=== PATIENT | female | born 1965 | race Hispanic/Latino ===

== ENCOUNTER 2018-08-22 19:54 | Emergency (ER) | payer OTHER ==
[2018-08-22] MEDS ORDERED: SODIUM CHLORIDE 0.9% 1000ML 1,000 ML IV ONE (20:49)
[2018-08-22] MEDS ORDERED: ACETAMINOPHEN EXTRA STRENGTH 500 MG TABLET ONE (20:49)
[2018-08-22 21:37] LABS: BASOPHILS % (AUTO) 0.6 % (0.0-5.0); EOSINOPHILS % (AUTO) 1.6 % (0.0-8.0); HEMATOCRIT 39.8 % (36-48); LYMPHOCYTES % (AUTO) 23.4 % (21.0-51.0); MEAN CORPUSCULAR HEMOGLOBIN 29.3 pg (27.0-33.0); MEAN CORPUSCULAR HGB CONC 32.6 g/dL (32.0-36.0); MEAN CORPUSCULAR VOLUME 89.9 fL (79-99); MONOCYTES % (AUTO) 10.9 % (3.0-13.0); NEUTROPHILS % (AUTO) 63.5 % (40.0-77.0); PLATELET COUNT (AUTO) 293 K/uL (130-400); RED BLOOD CELL COUNT(AUTO) 4.42 MIL/uL (4.00-5.50); RED CELL DISTRIBUTION WIDTH 14.8 % (11.0-15.5); WHITE BLOOD COUNT (AUTO) 8.6 K/uL (4.8-10.8)
[2018-08-22 21:53] LABS: CREATININE 0.7 mg/dL (0.5-1.5)
[2018-08-22 21:58] LABS: ALBUMIN 3.7 g/dL (3.5-5.0); BILIRUBIN,DIRECT 0.2 mg/dL (0.0-0.3); BILIRUBIN,TOTAL 0.6 mg/dL (0.2-1.0); TOTAL PROTEIN, SERUM 8.2 g/dL (6.0-8.3)
[2018-08-22 22:00] LABS: ACETAMINOPHEN < 1 mcg/mL (10-30); ALCOHOL, BLOOD < 3 mg/dL (0-10); SALICYLATE < 2.8 mg/dL (2.8-20.0)
[2018-08-22 22:10] LABS: APPEARANCE,URINE Clear (CLEAR); BILIRUBIN,URINE Negative (NEGATIVE); COLOR,URINE Yellow (YELLOW); GLUCOSE, URINE (UA) Negative (NEGATIVE); KETONES,URINE Negative (NEGATIVE); LEUKOCYTE ESTERASE ,URINE Small (NEGATIVE); NITRATE,URINE Negative (NEGATIVE); OCCULT BLOOD,URINE Negative (NEGATIVE); PROTEIN,URINE Negative (NEGATIVE); UROBILINOGEN,URINE 0.2 mg/dL (0.2-1.0)
[2018-08-22 22:11] LABS: INR 0.98 (0.85-1.15); PARTIAL THROMBOPLASTIN TIME 30.3 SEC (26.3-35.5); PROTHROMBIN TIME 10.3 SEC (9.6-11.6)
[2018-08-22 22:48] LABS: BACTERIA,URINE None Seen /HPF (None Seen); RBC,URINE None Seen /HPF (0-1); SQUAMOUS EPITHELIAL CELL,UR Rare /HPF (0-2); WBC,URINE 0-1 /HPF (0-1)
== END 2018-08-22 23:22 | disposition home or self-care (01) ==
LOC: EDH 19:54
DX: F20.9 Schizophrenia, unspecified (principal); J11.1 Influenza due to unidentified influenza virus with other respiratory manifestations; E86.0 Dehydration; F32.9 Major depressive disorder, single episode, unspecified; F41.9 Anxiety disorder, unspecified; I10 Essential (primary) hypertension
CPT/HCPCS: 36415; 70450; 71045; 80048; 80076; 81001; 82140; 82550; 84484; 85025; 85610; 85730; 87040 ×2; 87804 ×2; 93005; 96360; 99284; G0480 ×2; G0481; J7030

== ENCOUNTER 2018-10-10 06:15 | Emergency (ER) | payer OTHER ==
[2018-10-10 06:52] LABS: APPEARANCE,URINE CLEAR (CLEAR); BILIRUBIN,URINE NEGATIVE (NEGATIVE); COLOR,URINE YELLOW (YELLOW); GLUCOSE, URINE (UA) NEGATIVE (NEGATIVE); KETONES,URINE NEGATIVE (NEGATIVE); LEUKOCYTE ESTERASE ,URINE NEGATIVE (NEGATIVE); NITRATE,URINE NEGATIVE (NEGATIVE); OCCULT BLOOD,URINE SMALL (NEGATIVE); PROTEIN,URINE 100 mg/dL (NEGATIVE)
[2018-10-10 06:55] LABS: BASOPHILS % (AUTO) 0.2 % (0.0-5.0); HEMATOCRIT 37.9 % (36-48); MEAN CORPUSCULAR HEMOGLOBIN 29.4 pg (27.0-33.0); MEAN CORPUSCULAR HGB CONC 33.3 g/dL (32.0-36.0); MEAN CORPUSCULAR VOLUME 88.4 fL (79-99); NEUTROPHILS % (AUTO) 73.8 % (40.0-77.0); PLATELET COUNT (AUTO) 246 K/uL (130-400); RED BLOOD CELL COUNT(AUTO) 4.28 MIL/uL (4.00-5.50); RED CELL DISTRIBUTION WIDTH 16.2 % (11.0-15.5); WHITE BLOOD COUNT (AUTO) 6.1 K/uL (4.8-10.8)
[2018-10-10 07:00] LABS: AMPHET/METH SCREEN,URINE NEGATIVE (NEGATIVE); BARBITURATE SCREEN, URINE NEGATIVE (NEGATIVE); BENZODIAZEPINES SCREEN,URINE POSITIVE (NEGATIVE); CANNABINOID SCREEN,URINE NEGATIVE (NEGATIVE); CARBON DIOXIDE 26 mmol/L (21-32); CHLORIDE 104 mmol/L (101-111); COCAINE SCREEN,URINE NEGATIVE (NEGATIVE); CREATININE 0.7 mg/dL (0.5-1.5); GLOMERULAR FILTR. RATE CALC 93 mL/min (>60); GLUCOSE,RANDOM 116 mg/dL (70-105); OPIATE SCREEN,URINE NEGATIVE (NEGATIVE); PHENCYCLIDINE SCREEN,URINE NEGATIVE (NEGATIVE); POTASSIUM 3.3 mmol/L (3.5-5.1); SODIUM SERUM 142 mmol/L (136-145); UREA NITROGEN, BLOOD 11 mg/dL (7-18)
[2018-10-10 07:01] LABS: BACTERIA,URINE None Seen /HPF (None Seen); MUCUS,URINE Moderate LPF (None Seen); SQUAMOUS EPITHELIAL CELL,UR 0-2 /HPF (0-2); WBC,URINE None Seen /HPF (0-1)
[2018-10-10 07:03] LABS: PARTIAL THROMBOPLASTIN TIME 29.4 SEC (26.3-35.5); PROTHROMBIN TIME 10.5 SEC (9.6-11.6)
[2018-10-10 07:16] LABS: ALANINE AMINOTRANSFERASE 19 U/L (12-78); ALBUMIN 3.7 g/dL (3.5-5.0); ASPARTATE AMINOTRANSFERASE 15 U/L (10-37); BILIRUBIN,TOTAL 0.3 mg/dL (0.2-1.0); CREATINE KINASE, TOTAL 109 U/L (21-232); LIPASE 107 U/L (114-286); THYROID STIMULATING HORMONE 13.51 uIU/mL (0.36-3.74); TOTAL PROTEIN, SERUM 8.3 g/dL (6.0-8.3)
[2018-10-10 07:38] LABS: ALCOHOL, BLOOD < 3 mg/dL (0-10)
[2018-10-10 07:42] LABS: ACETAMINOPHEN < 1 mcg/mL (10-30); SALICYLATE < 2.8 mg/dL (2.8-20.0)
[2018-10-10] MEDS ORDERED: CLONIDINE HCL 0.1 MG TABLET ONE (08:17)
[2018-10-10] MEDS ORDERED: ZIPRASIDONE MESYLATE 20 MG/VIAL IM ONE ×2 (09:38→21:44)
[2018-10-10] MEDS ORDERED: LORAZEPAM 2 MG/ML 1 ML VIAL ONE ×4 (12:31→23:32)
[2018-10-10] MEDS ORDERED: ACETAMINOPHEN EXTRA STRENGTH 500 MG TABLET ONE (18:35)
[2018-10-10] MEDS ORDERED: DiphenhydrAMINE HCL 50 MG/ML VIAL ONE (22:12)
[2018-10-10] MEDS ORDERED: HALOPERIDOL LACTATE 5 MG/ML VIAL ONE ×2 (23:08→23:32)
[2018-10-11] MEDS ORDERED: POTASSIUM CHLORIDE 10% ELIXIR 20 MEQ/15 ML UDCUP ONE (10:43)
[2018-10-11 11:13] LABS: POTASSIUM 3.7 mmol/L (3.5-5.1); T4 (THYROXINE) 8.8 ug/dL (4.7-13.3)
[2018-10-11] MEDS ORDERED: LORAZEPAM 2 MG/ML 1 ML VIAL ONE ×2 (12:30→22:28)
[2018-10-11] MEDS ORDERED: DiphenhydrAMINE HCL 50 MG/ML VIAL ONE (22:28)
[2018-10-11] MEDS ORDERED: HALOPERIDOL LACTATE 5 MG/ML VIAL ONE (22:29)
[2018-10-12] MEDS ORDERED: METOCLOPRAMIDE 10 MG TABLET ONE ×2 (06:05→06:08)
[2018-10-12] MEDS ORDERED: LORAZEPAM 1 MG TABLET ONE (07:12)
[2018-10-12 08:59] LABS: BASOPHILS % (AUTO) 0.4 % (0.0-5.0); EOSINOPHILS % (AUTO) 0.2 % (0.0-8.0); HEMATOCRIT 37.9 % (36-48); MEAN CORPUSCULAR HEMOGLOBIN 29.9 pg (27.0-33.0); MEAN CORPUSCULAR HGB CONC 33.7 g/dL (32.0-36.0); MEAN CORPUSCULAR VOLUME 88.7 fL (79-99); MONOCYTES % (AUTO) 10.3 % (3.0-13.0); NEUTROPHILS % (AUTO) 70.1 % (40.0-77.0); PLATELET COUNT (AUTO) 242 K/uL (130-400); RED BLOOD CELL COUNT(AUTO) 4.28 MIL/uL (4.00-5.50); RED CELL DISTRIBUTION WIDTH 16.3 % (11.0-15.5); WHITE BLOOD COUNT (AUTO) 6.6 K/uL (4.8-10.8)
[2018-10-12 09:09] LABS: CREATININE 0.7 mg/dL (0.5-1.5); POTASSIUM 3.6 mmol/L (3.5-5.1)
[2018-10-12 09:14] LABS: ALBUMIN 3.7 g/dL (3.5-5.0); BILIRUBIN,TOTAL 0.6 mg/dL (0.2-1.0)
== END 2018-10-10 14:11 ==
LOC: EDH 06:15
DX: F23 Brief psychotic disorder (principal); F32.9 Major depressive disorder, single episode, unspecified; F41.9 Anxiety disorder, unspecified; I10 Essential (primary) hypertension; Z98.890 Other specified postprocedural states
CPT/HCPCS: 36415 ×3; 70450; 80053 ×2; 80305; 81001; 82550; 83605; 83690; 84132; 84436; 84443; 84484; 85025 ×2; 85610; 85730; 93005; 96372 ×8; 96374; 96375; 96376; 99285; A4218; G0480 ×2; G0481; J1200; J1630 ×2; J2060 ×4; J3486 ×2

== ENCOUNTER 2018-11-06 02:33 | Inpatient (IN) | payer OTHER ==
[~2018-11-06] VITALS: Ht 160 cm; Wt 92.3 kg
[2018-11-06 03:21] LABS: BASOPHILS % (AUTO) 0.5 % (0.0-5.0); HEMATOCRIT 31.5 % (36-48); MEAN CORPUSCULAR VOLUME 91.1 fL (79-99); NEUTROPHILS % (AUTO) 53.5 % (40.0-77.0); PLATELET COUNT (AUTO) 235 K/uL (130-400); RED BLOOD CELL COUNT(AUTO) 3.46 MIL/uL (4.00-5.50); RED CELL DISTRIBUTION WIDTH 15.5 % (11.0-15.5); WHITE BLOOD COUNT (AUTO) 6.4 K/uL (4.8-10.8)
[2018-11-06 03:32] LABS: INR 0.97 (0.85-1.15); PROTHROMBIN TIME 10.2 SEC (9.6-11.6)
[2018-11-06 03:35] LABS: ALBUMIN 3.3 g/dL (3.5-5.0); BILIRUBIN,TOTAL 0.5 mg/dL (0.2-1.0); TOTAL PROTEIN, SERUM 7.2 g/dL (6.0-8.3)
[2018-11-06] MEDS ORDERED: ACETAMINOPHEN 325 MG TAB PO PRN ×2 (04:45)
[2018-11-06] MEDS ORDERED: ONDANSETRON HCL 4 MG/2 ML VIAL IV PRN (04:45)
[2018-11-06 04:50] LABS: MAGNESIUM 1.7 mg/dL (1.80-2.40); THYROID STIMULATING HORMONE 3.89 uIU/mL (0.36-3.74)
[2018-11-06] MEDS ORDERED: MAGNESIUM OXIDE 400 MG TABLET PO ONE (05:36)
[2018-11-06 06:49] VITALS: BP 131/56
--- NOTE | 2018-11-06 06:50 | NUR ---
Patient arrived on unit at 0645. patient does not have home meds. Can only answer questions such as name, , and what city she is from. Patient is currently SR 70s. Resting in bed. Denies pain or sob. Report given to TRACY Steen.
[2018-11-06] MEDS: FAMOTIDINE/PF 20 MG/2 ML VIAL IV SCH ×2 (09:22→21:38)
[2018-11-06] MEDS: ENOXAPARIN SODIUM 30 MG/0.3 ML SQ SCH ×2 (09:26→21:38)
[2018-11-06 12:00] VITALS: BP 106/52
--- NOTE | 2018-11-06 12:06 | NUR ---
Spoke with Ritu Saleh, authorized spoke [facility] of [facility]. Ritu is coming to the hospital and will provide the medications list
[2018-11-06 15:48] LABS: APPEARANCE,URINE Clear (CLEAR); BILIRUBIN,URINE Negative (NEGATIVE); COLOR,URINE Yellow (YELLOW); GLUCOSE, URINE (UA) Negative (NEGATIVE); KETONES,URINE Negative (NEGATIVE); LEUKOCYTE ESTERASE ,URINE Trace (NEGATIVE); NITRATE,URINE Negative (NEGATIVE); OCCULT BLOOD,URINE Negative (NEGATIVE); PH,URINE 5.5 (5.0-8.0); PROTEIN,URINE Negative (NEGATIVE)
[2018-11-06 15:57] LABS: AMPHET/METH SCREEN,URINE NEGATIVE (NEGATIVE); BARBITURATE SCREEN, URINE NEGATIVE (NEGATIVE); BENZODIAZEPINES SCREEN,URINE NEGATIVE (NEGATIVE); CANNABINOID SCREEN,URINE NEGATIVE (NEGATIVE); COCAINE SCREEN,URINE NEGATIVE (NEGATIVE); OPIATE SCREEN,URINE NEGATIVE (NEGATIVE); PHENCYCLIDINE SCREEN,URINE NEGATIVE (NEGATIVE)
[2018-11-06 15:58] LABS: BACTERIA,URINE Rare /HPF (None Seen); RBC,URINE 0-1 /HPF (0-1)
[2018-11-06 15:59] LABS: MUCUS,URINE Few LPF (None Seen); SQUAMOUS EPITHELIAL CELL,UR Few /HPF (0-2)
[2018-11-06 16:00] VITALS: BP 134/59
--- NOTE | 2018-11-06 16:36 | NUR ---
[facility] CM met with pt currently by herself in room, unable to answer questions appropriately. Called caregiver # on facesheet as well as , no answer, left voicemail. Obtained info from [facility]. Pt is semi-independent, currently at [facility], does not use any DME's. Will reassess once closer to dc/when able to get in touch w/caregiver or . DC plan back to [facility]. CM to cont to follow up. Addendum: 11/06/18 at 1638 by JIMMY CHRISTIANSON LVN CM Amended: Links added.
[2018-11-06 19:30] VITALS: BP_SYST 151; BP_SYST 165; BP_DIAS 66; BP_DIAS 68
[2018-11-06] MEDS ORDERED: MAGNESIUM 2GM PREMIX 50ML 50 ML IV PRN (21:45)
[2018-11-06 23:28] VITALS: BP 136/59
[2018-11-07] VITALS (7 sets, daily range): BP systolic 133–177; BP diastolic 55–88
[2018-11-07 03:41] LABS: HEMATOCRIT 32.9 % (36-48); MEAN CORPUSCULAR HEMOGLOBIN 30.3 pg (27.0-33.0); MEAN CORPUSCULAR HGB CONC 33.8 g/dL (32.0-36.0); MEAN CORPUSCULAR VOLUME 89.8 fL (79-99); PLATELET COUNT (AUTO) 264 K/uL (130-400); RED BLOOD CELL COUNT(AUTO) 3.66 MIL/uL (4.00-5.50); RED CELL DISTRIBUTION WIDTH 15.4 % (11.0-15.5); WHITE BLOOD COUNT (AUTO) 6.2 K/uL (4.8-10.8)
[2018-11-07 04:02] LABS: CREATININE 0.8 mg/dL (0.5-1.5); MAGNESIUM 2.3 mg/dL (1.80-2.40); PHOSPHORUS 3.2 mg/dL (2.5-4.9); POTASSIUM 3.4 mmol/L (3.5-5.1)
[2018-11-07] MEDS: LEVOTHYROXINE 50 MCG TABLET PO SCH (06:53)
[2018-11-07] MEDS: FAMOTIDINE/PF 20 MG/2 ML VIAL IV SCH ×2 (09:00→21:01)
[2018-11-07] MEDS: ENOXAPARIN SODIUM 30 MG/0.3 ML SQ SCH ×2 (10:30→21:02)
[2018-11-08] VITALS (7 sets, daily range): BP systolic 124–152; BP diastolic 56–71
[2018-11-08] MEDS: LEVOTHYROXINE 50 MCG TABLET PO SCH (04:56)
[2018-11-08 05:42] LABS: HEMATOCRIT 30.4 % (36-48); MEAN CORPUSCULAR HEMOGLOBIN 30.7 pg (27.0-33.0); MEAN CORPUSCULAR VOLUME 90.5 fL (79-99); PLATELET COUNT (AUTO) 217 K/uL (130-400); RED BLOOD CELL COUNT(AUTO) 3.36 MIL/uL (4.00-5.50); RED CELL DISTRIBUTION WIDTH 15.7 % (11.0-15.5); WHITE BLOOD COUNT (AUTO) 4.9 K/uL (4.8-10.8)
[2018-11-08 05:51] LABS: CREATININE 0.7 mg/dL (0.5-1.5); MAGNESIUM 1.7 mg/dL (1.80-2.40); POTASSIUM 3.6 mmol/L (3.5-5.1)
[2018-11-08] MEDS: FAMOTIDINE/PF 20 MG/2 ML VIAL IV SCH ×2 (10:05→20:18)
[2018-11-08] MEDS: ENOXAPARIN SODIUM 30 MG/0.3 ML SQ SCH ×2 (10:07→20:18)
--- NOTE | 2018-11-08 10:38 | NUR ---
CALLED [facility] TO REQUEST CURRENT MEDICATION LIST FOR PT. PERSON STATES PT. WAS NEVER ADMITTED, SHE ARRIVED AT [facility] AND "WAS SENT STRAIGHT TO THE ER [[facility] [place]]."
--- NOTE | 2018-11-08 10:47 | NUR ---
CALLED PATI GALINDO, FROM [facility] WHERE PT. RESIDES, AND OBTAINED A LIST OF PT.'S HOME MEDICATIONS FROM SAID PERSON. Addendum: 11/08/18 at 1110 by JESUS BERRIOS RN RN ALL HOME MEDICATIONS DOUBLE CHECKED WITH PATI GALINDO. ALL MEDICATIONS SCHEDULED; NO MEDICATIONS ARE " NEEDED" BASIS.
[2018-11-08] MEDS ORDERED: TRAZ-185 PO (11:09)
[2018-11-08] MEDS ORDERED: RISP4TAB16 PO (11:09)
[2018-11-08] MEDS ORDERED: RISP1TAB26 PO (11:09)
[2018-11-08] MEDS ORDERED: ZOLP10TA6 PO (11:09)
[2018-11-08] MEDS ORDERED: OLAN10TA20 PO (11:09)
[2018-11-08] MEDS ORDERED: HYDR50CA50 PO (11:09)
[2018-11-08] MEDS ORDERED: AMLO10TA7 PO (11:09)
[2018-11-08] MEDS ORDERED: METO25TA6 PO (11:09)
[2018-11-08] MEDS: **HM**(Hydroxyzine Pamoate 50 MG PO SCH ×2 (14:00→20:31)
--- NOTE | 2018-11-08 14:22 | NUR ---
DR. DEGROOT IN ROOM SPEAKING WITH PT. RE:PLAN OF CARE.
[2018-11-08 18:34] LABS: APPEARANCE,URINE Clear (CLEAR); BILIRUBIN,URINE Negative (NEGATIVE); COLOR,URINE Yellow (YELLOW); GLUCOSE, URINE (UA) Negative (NEGATIVE); KETONES,URINE Negative (NEGATIVE); LEUKOCYTE ESTERASE ,URINE Negative (NEGATIVE); NITRATE,URINE Negative (NEGATIVE); OCCULT BLOOD,URINE Negative (NEGATIVE); PH,URINE 6.5 (5.0-8.0); PROTEIN,URINE Negative (NEGATIVE); UROBILINOGEN,URINE 0.2 mg/dL (0.2-1.0)
[2018-11-08] MEDS: OLANZAPINE 5 MG TAB PO SCH (20:19)
[2018-11-08] MEDS ORDERED: RISPERIDONE 1 MG TABLET PO SCH (21:00)
[2018-11-08] MEDS ORDERED: TRAZODONE HCL 100 MG TABLET PO SCH (21:00)
[2018-11-08] MEDS ORDERED: ZOLPIDEM TARTRATE 5 MG TAB PO SCH (21:00)
[2018-11-09] VITALS: BP 148/69
[2018-11-09 04:00] VITALS: BP 178/77
[2018-11-09] MEDS: LEVOTHYROXINE 50 MCG TABLET PO SCH (06:06)
--- NOTE | 2018-11-09 07:30 | NUR ---
ASSESSMENT PT IS AAOX3 DENIES CP DENIES SOB DENIES NV NO COMPLAINTS. RESTING IN BED. HR VIA TELE 43 SB. PATIENT DENIES DIZZINESS OR NAUSEA. CALL LIGHT WITHIN REACH, DOOR AJAR.
[2018-11-09 07:49] VITALS: BP 135/47
[2018-11-09] MEDS: **HM**(Hydroxyzine Pamoate 50 MG PO SCH ×2 (08:10→13:03)
[2018-11-09] MEDS: OLANZAPINE 5 MG TAB PO SCH (08:12)
[2018-11-09] MEDS: FAMOTIDINE/PF 20 MG/2 ML VIAL IV SCH (08:12)
[2018-11-09] MEDS: ENOXAPARIN SODIUM 30 MG/0.3 ML SQ SCH (08:12)
--- NOTE | 2018-11-09 08:30 | NUR ---
HR VIA TELE WITH [employer] [employer] PATIENT DENIES CP DENIES SOB DENIES NV NO COMPLAINTS. DOOR AJAR LIGHTS OPEN CALL LIGHT WITHIN REACH.
[2018-11-09] MEDS ORDERED: AMLODIPINE BESYLATE 2.5 MG TAB PO SCH (09:00)
[2018-11-09] MEDS ORDERED: RISPERIDONE PO SCH (09:00)
--- NOTE | 2018-11-09 10:35 | NUR ---
cm note call made to listed next of kin spouse silver lentz, called multiple times and no response and unable to leave message on the line. call made to next listed number is mitchell maldonado [phone] she is in charge of [facility] assisted living. and states pt has been a resident since May of last year. and states that pt became psychotic and aggressive and they took her to [facility] for assistance, but then got transferred to our hospital. she states that she prefers for pt to go to [facility] first , then she will take her back at her facility, Does state that if not able to get accepted at [facility] she will accept her back at her facililty. per mitchell states that spouse is very difficult to get a hold off, and that he only comes to pay for her room and then leaves.little or no interaction with pt, states she has no other listed next of kin information. updated CM director Shanel angeles RNCM,and inability to find family. states to proceed with referral to [facility] and document attempts to find familiy. updated primary md. referral faxed to [facility].
[2018-11-09 11:10] VITALS: BP 134/71
--- NOTE | 2018-11-09 12:41 | NUR ---
cm note received call from Jovanna lauren at [facility] , states that her psychiatrist states no capability at this time. does not meet IP psych criteria for admisssion to [facility] at this time. updated primary md, did inform him that if not accepted at [facility] , then Ritu maldonado [phone] from [facility] assisted living will accept pt. call made to Ritu maldonado with [facility], and updated on above, and states that if pt not accepted, then she will accept pt back to her facility, and she will come and pick her up at [facility]. Primary nurse Tirso updated.
[2018-11-09 15:14] VITALS: BP 136/54
--- NOTE | 2018-11-09 15:30 | NUR ---
MD ROUNDS DR Robel PERRY AND DR CHEEK ROUNDED, OK TO DC PATIENT BACK TO LONG TERM.
--- NOTE | 2018-11-09 16:31 | NUR ---
NOTIFIED [facility] OR PATIENT ORDER TO BE DC SPOKE WITH PATI, SHE WILL COME HOOKER ON PATIENT Addendum: 11/09/18 at 1752 by CARIDAD BREAUX RN RN OF PATIENT ORDER TO BE DC
--- NOTE | 2018-11-09 17:23 | NUR ---
DISCHARGED TO [facility] WITH PATI CAREGIVER. ALL INSTRUCTIONS GIVEN TO CAREGIVER. PIV REMOVED, CATH TIP INTACT, TELE PACK REMOVED. ALL BELONGINGS TAKEN. DOWN VIA WC TO VEHICLE.
== END 2018-11-09 17:27 | DRG 310 ==
LOC: EDH 02:33 → EDHIP 04:35 → 2DH 06:14
PROVIDERS: ADMIT Internal Medicine; ATTEND Internal Medicine
DX: R00.1 Bradycardia, unspecified (principal); E11.9 Type 2 diabetes mellitus without complications; F20.9 Schizophrenia, unspecified; F31.9 Bipolar disorder, unspecified; I10 Essential (primary) hypertension; E66.9 Obesity, unspecified; E03.9 Hypothyroidism, unspecified; Z79.84 Long term (current) use of oral hypoglycemic drugs; Z88.6 Allergy status to analgesic agent; Z88.0 Allergy status to penicillin; Z68.36 Body mass index [BMI] 36.0-36.9, adult
CPT/HCPCS: 36415; 71045; 80048; 80053; 80305; 81001; 81003; 82550; 82948; 83735; 84100; 84443; 84484; 85025; 85027; 85610; 85730; 93005; G0378; J1650; J3475; J3490

== ENCOUNTER 2021-09-07 12:05 | Emergency (ER) | payer OTHER ==
[~2021-09-07] VITALS: Ht 165.1 cm; Wt 81.6 kg
[~2021-09-07 12:05] MED LIST: AMLO-258 PO; HYDR50CA50 PO; OLAN10TA73 PO; RISP1TAB98 PO; RISP4TAB73 PO; TRAZ-185 PO; ZOLP10TA6 PO
[2021-09-07 12:27] LABS: BASOPHILS % (AUTO) 0.6 % (0.0-5.0); EOSINOPHILS % (AUTO) 1.6 % (0.0-8.0); HEMATOCRIT 29.2 % (36-48); LYMPHOCYTES % (AUTO) 30.2 % (21.0-51.0); MEAN CORPUSCULAR HGB CONC 32.2 g/dL (32.0-36.0); MEAN CORPUSCULAR VOLUME 93.3 fL (79-99); MONOCYTES % (AUTO) 15.2 % (3.0-13.0); NEUTROPHILS % (AUTO) 52.1 % (40.0-77.0); PLATELET COUNT (AUTO) 265 K/uL (130-400); RED BLOOD CELL COUNT(AUTO) 3.13 MIL/uL (4.00-5.50); RED CELL DISTRIBUTION WIDTH 15.2 % (11.0-15.5); WHITE BLOOD COUNT (AUTO) 7.1 K/uL (4.8-10.8)
[2021-09-07] MEDS ORDERED: 0.9%NACL 1000ML 1,000 ML IV ONE (12:30)
[2021-09-07 12:42] LABS: CARBON DIOXIDE 29 mmol/L (21-32); CHLORIDE 103 mmol/L (101-111); CREATININE 0.7 mg/dL (0.5-1.5); GLOMERULAR FILTR. RATE CALC 92 mL/min (>60); GLUCOSE,RANDOM 95 mg/dL (70-105); POTASSIUM 3.6 mmol/L (3.5-5.1); SODIUM SERUM 140 mmol/L (136-145); UREA NITROGEN, BLOOD 15 mg/dL (7-18)
[2021-09-07 12:49] LABS: ALANINE AMINOTRANSFERASE 22 U/L (12-78); ALBUMIN 2.9 g/dL (3.5-5.0); ALCOHOL, BLOOD 5 mg/dL (0-10); ASPARTATE AMINOTRANSFERASE 28 U/L (10-37); BILIRUBIN,TOTAL 0.2 mg/dL (0.2-1.0); CREATINE KINASE, TOTAL 211 U/L (21-232); TOTAL PROTEIN, SERUM 7.2 g/dL (6.0-8.3)
[2021-09-07 12:54] LABS: ACETAMINOPHEN < 1 mcg/mL (10-30); SALICYLATE < 2.8 mg/dL (2.8-20.0)
[2021-09-07] MEDS ORDERED: ZIPRASIDONE MESYLATE 20 MG/VIAL IM SCH (13:00)
[2021-09-07 15:43] LABS: APPEARANCE,URINE CLEAR (CLEAR); BILIRUBIN,URINE NEGATIVE (NEGATIVE); COLOR,URINE YELLOW (YELLOW); GLUCOSE, URINE (UA) NEGATIVE (NEGATIVE); KETONES,URINE NEGATIVE (NEGATIVE); LEUKOCYTE ESTERASE ,URINE NEGATIVE (NEGATIVE); NITRATE,URINE NEGATIVE (NEGATIVE); OCCULT BLOOD,URINE SMALL (NEGATIVE); PROTEIN,URINE NEGATIVE (NEGATIVE); UROBILINOGEN,URINE 0.2 mg/dL (0.2-1.0)
[2021-09-07 15:51] LABS: AMPHET/METH SCREEN,URINE NEGATIVE (NEGATIVE); BARBITURATE SCREEN, URINE NEGATIVE (NEGATIVE); BENZODIAZEPINES SCREEN,URINE NEGATIVE (NEGATIVE); CANNABINOID SCREEN,URINE NEGATIVE (NEGATIVE); COCAINE SCREEN,URINE NEGATIVE (NEGATIVE); OPIATE SCREEN,URINE NEGATIVE (NEGATIVE); PHENCYCLIDINE SCREEN,URINE NEGATIVE (NEGATIVE)
[2021-09-07 15:56] LABS: RBC,URINE 0-1 /HPF (0-1); WBC,URINE 0-1 /HPF (0-1)
[2021-09-07 15:58] LABS: BACTERIA,URINE Rare /HPF (None Seen); SQUAMOUS EPITHELIAL CELL,UR Rare /HPF (0-2)
[2021-09-07] MEDS: ZIPRASIDONE MESYLATE 20 MG/VIAL IM SCH ×2 (18:01→18:02)
[2021-09-07] MEDS ORDERED: LORAZEPAM 2 MG/ML 1 ML VIAL IM ONE ×2 (20:00→22:30)
[2021-09-07] MEDS ORDERED: DiphenhydrAMINE HCL 50 MG/ML VIAL ONE (21:39)
[2021-09-07] MEDS ORDERED: DiphenhydrAMINE HCL 50 MG/ML VIAL IM ONE ×2 (22:00→22:30)
[2021-09-07] MEDS ORDERED: HALOPERIDOL INJ 5 MG/ML VIAL IM ONE (22:30)
[2021-09-07] MEDS ORDERED: LORAZEPAM 2 MG/ML 1 ML VIAL ONE (22:39)
[2021-09-08 01:28] VITALS: BP 132/82
== END 2021-09-08 03:29 ==
LOC: EDH 12:12
DX: F29 Unspecified psychosis not due to a substance or known physiological condition (principal); I10 Essential (primary) hypertension; F31.9 Bipolar disorder, unspecified; F20.9 Schizophrenia, unspecified; Z20.822 Contact with and (suspected) exposure to COVID-19
CPT/HCPCS: 36415; 80053; 80164; 80305; 81001; 82550; 85025; 87635; 93005; 96360; 96361; 96372 ×5; 99284; C9803; G0481; J1200 ×2; J2060 ×2; J3486 ×2; J7030

== ENCOUNTER 2021-11-25 08:23 | Emergency (ER) | payer MEDICARE, OTHER ==
[~2021-11-25] VITALS: Ht 154.9 cm; Wt 78.0 kg
[2021-11-25 08:45] LABS: BASOPHILS % (AUTO) 0.8 % (0.0-5.0); EOSINOPHILS % (AUTO) 0.1 % (0.0-8.0); HEMATOCRIT 41.3 % (36-48); LYMPHOCYTES % (AUTO) 26.5 % (21.0-51.0); MEAN CORPUSCULAR HEMOGLOBIN 29.1 pg (27.0-33.0); MEAN CORPUSCULAR HGB CONC 31.5 g/dL (32.0-36.0); MEAN CORPUSCULAR VOLUME 92.6 fL (79-99); MONOCYTES % (AUTO) 10.7 % (3.0-13.0); NEUTROPHILS % (AUTO) 61.7 % (40.0-77.0); PLATELET COUNT (AUTO) 208 K/uL (130-400); RED BLOOD CELL COUNT(AUTO) 4.46 MIL/uL (4.00-5.50); RED CELL DISTRIBUTION WIDTH 15.3 % (11.0-15.5); WHITE BLOOD COUNT (AUTO) 8.5 K/uL (4.8-10.8)
[2021-11-25 09:12] LABS: ALBUMIN 3.5 g/dL (3.5-5.0); BILIRUBIN,TOTAL 0.5 mg/dL (0.2-1.0); CREATININE 0.9 mg/dL (0.5-1.5); POTASSIUM 3.8 mmol/L (3.5-5.1); TOTAL PROTEIN, SERUM 8.4 g/dL (6.0-8.3)
[2021-11-25 09:27] LABS: PROTHROMBIN TIME 10.9 SEC (9.6-11.6)
[2021-11-25 09:27] LABS: APPEARANCE,URINE Clear (CLEAR); BILIRUBIN,URINE Negative (NEGATIVE); COLOR,URINE Yellow (YELLOW); GLUCOSE, URINE (UA) Negative (NEGATIVE); KETONES,URINE 15 mg/dL (NEGATIVE); LEUKOCYTE ESTERASE ,URINE Negative (NEGATIVE); NITRATE,URINE Negative (NEGATIVE); OCCULT BLOOD,URINE Trace (NEGATIVE); PROTEIN,URINE Trace mg/dL (NEGATIVE)
[2021-11-25 09:29] LABS: PARTIAL THROMBOPLASTIN TIME 25.1 SEC (26.3-35.5)
[2021-11-25 10:35] LABS: BACTERIA,URINE Rare /HPF (None Seen); RBC,URINE 0-1 /HPF (0-1); SQUAMOUS EPITHELIAL CELL,UR Rare /HPF (0-2); WBC,URINE 0-1 /HPF (0-1)
[2021-11-25] MEDS ORDERED: LACT10SO9 PO (10:45)
[2021-11-25] MEDS ORDERED: VALP250S5 PO (10:45)
[2021-11-25] MEDS ORDERED: HALO5TAB2 PO (10:45)
[2021-11-25] MEDS ORDERED: ATOR20TA65 PO (10:45)
[2021-11-25] MEDS ORDERED: APIX5TAB PO (10:45)
[2021-11-25] MEDS ORDERED: LORA-192 PO (10:45)
[2021-11-25] MEDS ORDERED: HYDR-4153 PO (10:45)
[2021-11-25] MEDS ORDERED: LEVO50CA4 PO (10:46)
[2021-11-25] MEDS ORDERED: 0.9%NACL 1000ML 1,000 ML IV ONE (11:00)
[2021-11-25 11:02] LABS: AMPHET/METH SCREEN,URINE NEGATIVE (NEGATIVE); BARBITURATE SCREEN, URINE NEGATIVE (NEGATIVE); BENZODIAZEPINES SCREEN,URINE NEGATIVE (NEGATIVE); CANNABINOID SCREEN,URINE NEGATIVE (NEGATIVE); COCAINE SCREEN,URINE NEGATIVE (NEGATIVE); OPIATE SCREEN,URINE NEGATIVE (NEGATIVE); PHENCYCLIDINE SCREEN,URINE NEGATIVE (NEGATIVE)
[2021-11-25 11:47] LABS: THYROID STIMULATING HORMONE 2.97 uIU/mL (0.36-3.74)
[2021-11-25] MEDS: LORAZEPAM 2 MG/ML 1 ML VIAL IVP ONE ×2 (13:12→13:13)
[2021-11-25 13:17] VITALS: BP 149/83
[2021-11-25] MEDS ORDERED: LORAZEPAM 2 MG/ML 1 ML VIAL IVP ONE (13:30)
== END 2021-11-25 16:04 | disposition home or self-care (01) ==
LOC: EDH 08:23
DX: E86.0 Dehydration (principal); F20.2 Catatonic schizophrenia; R29.898 Other symptoms and signs involving the musculoskeletal system; E03.9 Hypothyroidism, unspecified; F03.90 Unspecified dementia, unspecified severity, without behavioral disturbance, psychotic disturbance, mood disturbance, and anxiety; I10 Essential (primary) hypertension; Z88.6 Allergy status to analgesic agent; Z88.0 Allergy status to penicillin; Z79.01 Long term (current) use of anticoagulants; Z79.899 Other long term (current) drug therapy; Z86.718 Personal history of other venous thrombosis and embolism
CPT/HCPCS: 36415; 71045; 80053; 80164; 80305; 81001; 84439; 84443; 84481; 84484; 85025; 85610; 85730; 93005; 96361; 96374; 99285; J2060 ×2; J7030

== ENCOUNTER 2022-03-26 21:13 | Emergency (ER) | payer OTHER, MEDICAID ==
[~2022-03-26 21:13] MED LIST changes: +APIX5TAB PO; +ATOR20TA65 PO; +HALO5TAB2 PO; +HYDR-4153 PO; +LACT10SO9 PO; +LEVO50CA4 PO; +LORA-192 PO; +VALP250S5 PO
[2022-03-26 21:58] LABS: APPEARANCE,URINE CLEAR (CLEAR); BILIRUBIN,URINE NEGATIVE (NEGATIVE); COLOR,URINE COLORLESS (YELLOW); GLUCOSE, URINE (UA) NEGATIVE (NEGATIVE); KETONES,URINE NEGATIVE (NEGATIVE); LEUKOCYTE ESTERASE ,URINE 500 Leu/uL (NEGATIVE); NITRATE,URINE NEGATIVE (NEGATIVE); PROTEIN,URINE 20 mg/dL (NEGATIVE); UROBILINOGEN,URINE 0.2 mg/dL (0.2-1.0)
[2022-03-26 22:03] LABS: AMPHET/METH SCREEN,URINE NEGATIVE (NEGATIVE); BARBITURATE SCREEN, URINE NEGATIVE (NEGATIVE); BENZODIAZEPINES SCREEN,URINE NEGATIVE (NEGATIVE); CANNABINOID SCREEN,URINE NEGATIVE (NEGATIVE); COCAINE SCREEN,URINE NEGATIVE (NEGATIVE); PHENCYCLIDINE SCREEN,URINE NEGATIVE (NEGATIVE)
[2022-03-26 22:08] LABS: BACTERIA,URINE MOD /HPF (None Seen); HYALINE CASTS, URINE 0-1 /LPF (0-1 /LPF); MUCUS,URINE RARE LPF (None Seen); OTHER CASTS, URINE 2 /LPF (None Seen); SQUAMOUS EPITHELIAL CELL,UR FEW /HPF (0-2)
[2022-03-26] MEDS ORDERED: 0.9%NACL 1000ML 1,000 ML IV ONE (22:30)
[2022-03-26 22:33] LABS: EOSINOPHILS % (AUTO) 2.2 % (0.0-8.0); HEMATOCRIT 35.3 % (36-48); LYMPHOCYTES % (AUTO) 40.9 % (21.0-51.0); MEAN CORPUSCULAR HEMOGLOBIN 30.5 pg (27.0-33.0); MEAN CORPUSCULAR HGB CONC 32.6 g/dL (32.0-36.0); MEAN CORPUSCULAR VOLUME 93.6 fL (79-99); MONOCYTES % (AUTO) 10.7 % (3.0-13.0); PLATELET COUNT (AUTO) 226 K/uL (130-400); RED BLOOD CELL COUNT(AUTO) 3.77 MIL/uL (4.00-5.50); RED CELL DISTRIBUTION WIDTH 13.3 % (11.0-15.5); WHITE BLOOD COUNT (AUTO) 8.9 K/uL (4.8-10.8)
[2022-03-26 22:41] LABS: CARBON DIOXIDE 26 mmol/L (21-32); CHLORIDE 104 mmol/L (101-111); CREATININE 0.8 mg/dL (0.5-1.5); GLOMERULAR FILTR. RATE CALC 79 mL/min (>60); GLUCOSE,RANDOM 101 mg/dL (70-105); POTASSIUM 4.2 mmol/L (3.5-5.1); SODIUM SERUM 138 mmol/L (136-145); UREA NITROGEN, BLOOD 23 mg/dL (7-18)
[2022-03-26 22:46] LABS: ALANINE AMINOTRANSFERASE 11 U/L (12-78); ALBUMIN 3.5 g/dL (3.5-5.0); ALCOHOL, BLOOD < 3 mg/dL (0-10); ASPARTATE AMINOTRANSFERASE 16 U/L (10-37); SALICYLATE < 2.8 mg/dL (2.8-20.0)
[2022-03-26 22:47] LABS: ACETAMINOPHEN < 1 mcg/mL (10-30)
[2022-03-26] MEDS ORDERED: MACR100 PO (23:09)
[2022-03-26 23:26] VITALS: BP 128/71
== END 2022-03-27 00:35 ==
LOC: EDH 21:13
DX: F29 Unspecified psychosis not due to a substance or known physiological condition (principal); N39.0 Urinary tract infection, site not specified; Z20.822 Contact with and (suspected) exposure to COVID-19; D64.9 Anemia, unspecified; F03.90 Unspecified dementia, unspecified severity, without behavioral disturbance, psychotic disturbance, mood disturbance, and anxiety; I10 Essential (primary) hypertension; E03.9 Hypothyroidism, unspecified; F20.9 Schizophrenia, unspecified; Z86.718 Personal history of other venous thrombosis and embolism; Z79.899 Other long term (current) drug therapy; Z88.0 Allergy status to penicillin; Z88.6 Allergy status to analgesic agent
CPT/HCPCS: 99285; 96360; 87635; 80053; 80305; 85025; 87077; 87088; 87186; 36415; 81001; G0481; C9803; J7030

== ENCOUNTER 2022-06-05 13:09 | Inpatient (IN) | payer OTHER, MEDICAID ==
[~2022-06-05] VITALS: Ht 162.6 cm; Wt 72.6 kg
[~2022-06-05 13:09] MED LIST changes: +MACR100 PO
[2022-06-05 14:10] LABS: BASOPHILS % (AUTO) 0.6 % (0.0-5.0); EOSINOPHILS % (AUTO) 1.3 % (0.0-8.0); HEMATOCRIT 29.7 % (36-48); LYMPHOCYTES % (AUTO) 24.9 % (21.0-51.0); MEAN CORPUSCULAR HGB CONC 32.3 g/dL (32.0-36.0); MEAN CORPUSCULAR VOLUME 89.7 fL (79-99); MONOCYTES % (AUTO) 11.8 % (3.0-13.0); NEUTROPHILS % (AUTO) 61.1 % (40.0-77.0); PLATELET COUNT (AUTO) 375 K/uL (130-400); RED BLOOD CELL COUNT(AUTO) 3.31 MIL/uL (4.00-5.50); RED CELL DISTRIBUTION WIDTH 17.1 % (11.0-15.5); WHITE BLOOD COUNT (AUTO) 6.2 K/uL (4.8-10.8)
[2022-06-05 14:20] LABS: APPEARANCE,URINE CLEAR (CLEAR); BILIRUBIN,URINE NEGATIVE (NEGATIVE); COLOR,URINE COLORLESS (YELLOW); GLUCOSE, URINE (UA) NEGATIVE (NEGATIVE); KETONES,URINE NEGATIVE (NEGATIVE); LEUKOCYTE ESTERASE ,URINE NEGATIVE Leu/uL (NEGATIVE); NITRATE,URINE NEGATIVE (NEGATIVE); OCCULT BLOOD,URINE SMALL (NEGATIVE); PH,URINE 6.5 (5.0-8.0); PROTEIN,URINE NEGATIVE (NEGATIVE); UROBILINOGEN,URINE 0.2 mg/dL (0.2-1.0)
[2022-06-05 14:27] LABS: AMPHET/METH SCREEN,URINE NEGATIVE (NEGATIVE); BARBITURATE SCREEN, URINE NEGATIVE (NEGATIVE); BENZODIAZEPINES SCREEN,URINE NEGATIVE (NEGATIVE); CANNABINOID SCREEN,URINE NEGATIVE (NEGATIVE); COCAINE SCREEN,URINE NEGATIVE (NEGATIVE); OPIATE SCREEN,URINE NEGATIVE (NEGATIVE); PHENCYCLIDINE SCREEN,URINE NEGATIVE (NEGATIVE)
[2022-06-05] MEDS ORDERED: LORAZEPAM 2 MG/ML 1 ML VIAL IM ONE (14:30)
[2022-06-05 14:37] LABS: BACTERIA,URINE RARE /HPF (None Seen)
[2022-06-05 14:46] LABS: ALBUMIN 2.9 g/dL (3.5-5.0); CREATININE 0.8 mg/dL (0.5-1.5); POTASSIUM 4.5 mmol/L (3.5-5.1); TOTAL PROTEIN, SERUM 8.3 g/dL (6.0-8.3)
[2022-06-05] MEDS ORDERED: LORAZEPAM 2 MG/ML 1 ML VIAL ONE (15:46)
[2022-06-05 15:53] LABS: ALCOHOL, BLOOD < 3 mg/dL (0-10); CREATINE KINASE, TOTAL 58 U/L (21-232)
[2022-06-05 15:57] LABS: ACETAMINOPHEN < 1 mcg/mL (10-30); SALICYLATE < 2.8 mg/dL (2.8-20.0)
[2022-06-05] MEDS ORDERED: ACETAMINOPHEN 325 MG TAB PO PRN (18:30)
[2022-06-05] MEDS ORDERED: LACTULOSE 20 GM/30 ML UDCUP PO PRN (18:30)
[2022-06-05] MEDS: DIVALPROEX SODIUM 250 MG TABLET.DR PO SCH (18:55)
[2022-06-05] MEDS ORDERED: ALPRAZOLAM 0.25 MG TABLET ONE (20:14)
[2022-06-05] MEDS: ALPRAZOLAM 0.5 MG TABLET PO SCH (20:18)
[2022-06-05] MEDS: FAMOTIDINE 20MG VIAL IV SCH (20:27)
[2022-06-06] MEDS: DIVALPROEX SODIUM 250 MG TABLET.DR PO SCH ×3 (02:45→18:33)
[2022-06-06 04:09] VITALS: BP 108/49
[2022-06-06] MEDS ORDERED: DOCU100C33 PO (04:22)
[2022-06-06] MEDS ORDERED: LACT10SO5 PO (04:22)
[2022-06-06] MEDS ORDERED: DONE5TAB33 PO (04:22)
[2022-06-06] MEDS ORDERED: CLOZ100T11 PO (04:22)
[2022-06-06] MEDS ORDERED: FURO40TA5 PO (04:22)
[2022-06-06] MEDS ORDERED: FOLI1TAB85 PO (04:22)
[2022-06-06] MEDS ORDERED: CLOZ25TA10 PO (04:22)
[2022-06-06] MEDS ORDERED: BENZ1TAB10 PO (04:22)
[2022-06-06] MEDS ORDERED: QUET400T13 PO (04:22)
[2022-06-06] MEDS ORDERED: DIVA500T52 PO (04:22)
[2022-06-06 05:42] LABS: BASOPHILS % (AUTO) 0.6 % (0.0-5.0); EOSINOPHILS % (AUTO) 2.6 % (0.0-8.0); HEMATOCRIT 27.4 % (36-48); LYMPHOCYTES % (AUTO) 31.7 % (21.0-51.0); MEAN CORPUSCULAR HEMOGLOBIN 28.9 pg (27.0-33.0); MEAN CORPUSCULAR VOLUME 93.2 fL (79-99); MONOCYTES % (AUTO) 16.8 % (3.0-13.0); NEUTROPHILS % (AUTO) 47.8 % (40.0-77.0); PLATELET COUNT (AUTO) 361 K/uL (130-400); RED BLOOD CELL COUNT(AUTO) 2.94 MIL/uL (4.00-5.50); RED CELL DISTRIBUTION WIDTH 17.1 % (11.0-15.5); WHITE BLOOD COUNT (AUTO) 6.5 K/uL (4.8-10.8)
[2022-06-06 05:58] LABS: CREATININE 0.9 mg/dL (0.5-1.5); MAGNESIUM 1.9 mg/dL (1.80-2.40); PHOSPHORUS 3.7 mg/dL (2.5-4.9); POTASSIUM 4.3 mmol/L (3.5-5.1)
[2022-06-06] MEDS: INSULIN HUMULIN R 100 UNIT/ML 3ML SQ SCH ×4 (06:39→20:50)
[2022-06-06 08:00] VITALS: BP 120/64
[2022-06-06] MEDS: FAMOTIDINE 20MG VIAL IV SCH ×2 (09:46→20:46)
[2022-06-06] MEDS: ALPRAZOLAM 0.5 MG TABLET PO SCH ×2 (09:46→14:44)
[2022-06-06] MEDS: ENOXAPARIN SODIUM 40 MG/0.4 ML SYRINGE SQ SCH (09:46)
[2022-06-06 12:00] VITALS: BP 120/56
[2022-06-06 16:00] VITALS: BP 117/63
[2022-06-06] MEDS ORDERED: LORAZEPAM 2 MG/ML 1 ML VIAL IM PRN (17:00)
[2022-06-06 19:39] VITALS: BP 117/62
[2022-06-06] MEDS: CLONAZEPAM 1MG TAB PO SCH (21:21)
[2022-06-07 00:20] VITALS: BP 132/62
[2022-06-07] MEDS: DIVALPROEX SODIUM 250 MG TABLET.DR PO SCH ×3 (02:23→18:46)
[2022-06-07 03:48] VITALS: BP 145/72
[2022-06-07 05:19] LABS: BASOPHILS % (AUTO) 0.7 % (0.0-5.0); EOSINOPHILS % (AUTO) 2.2 % (0.0-8.0); HEMATOCRIT 28.4 % (36-48); LYMPHOCYTES % (AUTO) 25.4 % (21.0-51.0); MEAN CORPUSCULAR HEMOGLOBIN 29.1 pg (27.0-33.0); MEAN CORPUSCULAR VOLUME 90.7 fL (79-99); MONOCYTES % (AUTO) 10.7 % (3.0-13.0); NEUTROPHILS % (AUTO) 60.7 % (40.0-77.0); PLATELET COUNT (AUTO) 378 K/uL (130-400); RED BLOOD CELL COUNT(AUTO) 3.13 MIL/uL (4.00-5.50); RED CELL DISTRIBUTION WIDTH 16.6 % (11.0-15.5); WHITE BLOOD COUNT (AUTO) 5.8 K/uL (4.8-10.8)
[2022-06-07] MEDS: CLONAZEPAM 1MG TAB PO SCH ×3 (05:22→20:00)
[2022-06-07 05:31] LABS: % IRON SATURATION 9.8 % (22-44)
[2022-06-07 06:01] LABS: CARBON DIOXIDE 25 mmol/L (21-32); CHLORIDE 105 mmol/L (101-111); CREATININE 0.8 mg/dL (0.5-1.5); GLOMERULAR FILTR. RATE CALC 79 mL/min (>60); GLUCOSE,RANDOM 97 mg/dL (70-105); POTASSIUM 4.2 mmol/L (3.5-5.1); SODIUM SERUM 139 mmol/L (136-145); THYROID STIMULATING HORMONE 7.34 uIU/mL (0.36-3.74); UREA NITROGEN, BLOOD 24 mg/dL (7-18)
[2022-06-07] MEDS: INSULIN HUMULIN R 100 UNIT/ML 3ML SQ SCH ×4 (06:10→21:00)
[2022-06-07 07:00] VITALS: BP 138/70
[2022-06-07] MEDS: MAGNESIUM 2GM PREMIX 50ML 50 ML IV PRN (08:48)
[2022-06-07] MEDS: FAMOTIDINE 20MG VIAL IV SCH ×2 (08:48→20:00)
[2022-06-07] MEDS: ENOXAPARIN SODIUM 40 MG/0.4 ML SYRINGE SQ SCH (08:48)
[2022-06-07 11:00] VITALS: BP 121/55
[2022-06-07 16:00] VITALS: BP 136/75
[2022-06-07 20:00] VITALS: BP 127/60
[2022-06-08] VITALS: BP 125/48
[2022-06-08] MEDS: DIVALPROEX SODIUM 250 MG TABLET.DR PO SCH ×4 (03:09→20:58)
[2022-06-08 04:00] VITALS: BP 108/54
[2022-06-08] MEDS: CLONAZEPAM 1MG TAB PO SCH ×3 (05:10→20:58)
[2022-06-08 06:03] LABS: HEMATOCRIT 28.8 % (36-48); MEAN CORPUSCULAR HEMOGLOBIN 29.3 pg (27.0-33.0); MEAN CORPUSCULAR HGB CONC 31.6 g/dL (32.0-36.0); MEAN CORPUSCULAR VOLUME 92.6 fL (79-99); RED BLOOD CELL COUNT(AUTO) 3.11 MIL/uL (4.00-5.50); RED CELL DISTRIBUTION WIDTH 16.3 % (11.0-15.5); WHITE BLOOD COUNT (AUTO) 5.4 K/uL (4.8-10.8)
[2022-06-08] MEDS: INSULIN HUMULIN R 100 UNIT/ML 3ML SQ SCH ×4 (06:20→20:59)
[2022-06-08 06:25] LABS: ALBUMIN 2.4 g/dL (3.5-5.0); CREATININE 0.6 mg/dL (0.5-1.5); POTASSIUM 3.9 mmol/L (3.5-5.1)
[2022-06-08 08:00] VITALS: BP 127/65
[2022-06-08] MEDS: ENOXAPARIN SODIUM 40 MG/0.4 ML SYRINGE SQ SCH (08:11)
[2022-06-08] MEDS: FAMOTIDINE 20MG VIAL IV SCH ×2 (08:11→20:59)
[2022-06-08] MEDS: LACTULOSE 20 GM/30 ML UDCUP PO SCH ×2 (10:57→20:59)
[2022-06-08] MEDS: Vitamin B Complex/Vit C/Folic Acid PO SCH (10:57)
[2022-06-08] MEDS: BENZTROPINE 0.5MG TAB PO SCH ×2 (10:58→20:59)
[2022-06-08] MEDS: LEVOTHYROXINE 50 MCG TABLET PO SCH (10:58)
[2022-06-08] MEDS: FUROSEMIDE 40 MG TABLET PO SCH (10:58)
[2022-06-08] MEDS: APIXABAN 5 MG TABLET PO SCH ×2 (10:58→20:59)
[2022-06-08] MEDS: ATORVASTATIN 20 MG TABLET PO SCH ×2 (10:58→20:59)
[2022-06-08 12:00] VITALS: BP 123/53
[2022-06-08 16:00] VITALS: BP 128/43
[2022-06-08 20:00] VITALS: BP 128/56
[2022-06-08] MEDS: DONEPEZIL HCL 5 MG TAB PO SCH (20:58)
[2022-06-08] MEDS: QUETIAPINE FUMARATE 100 MG TAB PO SCH (20:58)
[2022-06-09] VITALS: BP 112/52
[2022-06-09] MEDS: DIVALPROEX SODIUM 250 MG TABLET.DR PO SCH ×4 (03:35→20:15)
[2022-06-09 04:00] VITALS: BP 102/46
[2022-06-09] MEDS: CLONAZEPAM 1MG TAB PO SCH ×2 (05:51→14:26)
[2022-06-09] MEDS: LEVOTHYROXINE 50 MCG TABLET PO SCH (05:51)
[2022-06-09] MEDS: INSULIN HUMULIN R 100 UNIT/ML 3ML SQ SCH ×4 (06:45→20:35)
[2022-06-09 07:30] VITALS: BP 130/59
[2022-06-09] MEDS: BENZTROPINE 0.5MG TAB PO SCH ×2 (09:43→20:16)
[2022-06-09] MEDS: FUROSEMIDE 40 MG TABLET PO SCH (09:43)
[2022-06-09] MEDS: FAMOTIDINE 20MG VIAL IV SCH ×2 (09:43→20:20)
[2022-06-09] MEDS: Vitamin B Complex/Vit C/Folic Acid PO SCH (09:43)
[2022-06-09] MEDS: LACTULOSE 20 GM/30 ML UDCUP PO SCH ×2 (09:43→20:18)
[2022-06-09] MEDS: APIXABAN 5 MG TABLET PO SCH ×2 (09:44→20:15)
[2022-06-09] MEDS: ENOXAPARIN SODIUM 40 MG/0.4 ML SYRINGE SQ SCH (09:44)
[2022-06-09 11:00] VITALS: BP 125/62
[2022-06-09 16:00] VITALS: BP 126/65
[2022-06-09 20:00] VITALS: BP 134/46
[2022-06-09] MEDS: QUETIAPINE FUMARATE 100 MG TAB PO SCH (20:13)
[2022-06-09] MEDS: DONEPEZIL HCL 5 MG TAB PO SCH (20:15)
[2022-06-09] MEDS: ATORVASTATIN 20 MG TABLET PO SCH (20:15)
[2022-06-10] VITALS (7 sets, daily range): BP systolic 106–157; BP diastolic 41–77
[2022-06-10] MEDS: CLONAZEPAM 1MG TAB PO SCH ×4 (00:03→22:11)
[2022-06-10] MEDS: DIVALPROEX SODIUM 250 MG TABLET.DR PO SCH ×4 (03:38→21:22)
[2022-06-10] MEDS: LEVOTHYROXINE 50 MCG TABLET PO SCH (05:47)
[2022-06-10] MEDS: INSULIN HUMULIN R 100 UNIT/ML 3ML SQ SCH ×4 (06:03→21:00)
[2022-06-10] MEDS: LACTULOSE 20 GM/30 ML UDCUP PO SCH ×2 (09:00→21:22)
[2022-06-10] MEDS: BENZTROPINE 0.5MG TAB PO SCH ×2 (09:38→21:21)
[2022-06-10] MEDS: FUROSEMIDE 40 MG TABLET PO SCH (09:38)
[2022-06-10] MEDS: Vitamin B Complex/Vit C/Folic Acid PO SCH (09:38)
[2022-06-10] MEDS: ENOXAPARIN SODIUM 40 MG/0.4 ML SYRINGE SQ SCH (09:39)
[2022-06-10] MEDS: FAMOTIDINE 20MG VIAL IV SCH ×2 (09:39→21:22)
[2022-06-10] MEDS: APIXABAN 5 MG TABLET PO SCH ×2 (09:39→21:21)
[2022-06-10] MEDS ORDERED: EPOETIN ALFA-EPBX (NON-ESRD) 10,000 UNIT/ML VIAL SQ ONE (16:30)
[2022-06-10] MEDS ORDERED: IRON SUCROSE COMPLEX 500 MG in 0.9% NACL 250ML 250 ML IV ONE (16:30)
[2022-06-10] MEDS: DONEPEZIL HCL 5 MG TAB PO SCH (21:21)
[2022-06-10] MEDS: ATORVASTATIN 20 MG TABLET PO SCH (21:21)
[2022-06-10] MEDS: QUETIAPINE FUMARATE 100 MG TAB PO SCH (21:22)
[2022-06-10] MEDS: TERBINAFINE HCL 15 GM TUBE TP SCH (21:23)
[2022-06-11] MEDS: DIVALPROEX SODIUM 250 MG TABLET.DR PO SCH ×4 (02:40→19:59)
[2022-06-11 03:53] VITALS: BP 153/71
[2022-06-11 05:20] LABS: BASOPHILS % (AUTO) 1.6 % (0.0-5.0); EOSINOPHILS % (AUTO) 4.5 % (0.0-8.0); HEMATOCRIT 30.2 % (36-48); LYMPHOCYTES % (AUTO) 53.2 % (21.0-51.0); MEAN CORPUSCULAR HEMOGLOBIN 28.7 pg (27.0-33.0); MEAN CORPUSCULAR HGB CONC 31.1 g/dL (32.0-36.0); MEAN CORPUSCULAR VOLUME 92.4 fL (79-99); MONOCYTES % (AUTO) 12.6 % (3.0-13.0); NEUTROPHILS % (AUTO) 27.8 % (40.0-77.0); PLATELET COUNT (AUTO) 154 K/uL (130-400); RED BLOOD CELL COUNT(AUTO) 3.27 MIL/uL (4.00-5.50); RED CELL DISTRIBUTION WIDTH 16.3 % (11.0-15.5); WHITE BLOOD COUNT (AUTO) 3.7 K/uL (4.8-10.8)
[2022-06-11 05:33] LABS: CREATININE 0.8 mg/dL (0.5-1.5); POTASSIUM 3.8 mmol/L (3.5-5.1)
[2022-06-11] MEDS: CLONAZEPAM 1MG TAB PO SCH ×3 (06:05→21:25)
[2022-06-11] MEDS: LEVOTHYROXINE 75 MCG TABLET PO SCH (06:05)
[2022-06-11] MEDS: INSULIN HUMULIN R 100 UNIT/ML 3ML SQ SCH ×4 (06:27→20:28)
[2022-06-11 08:00] VITALS: BP 119/50
[2022-06-11] MEDS: LACTULOSE 20 GM/30 ML UDCUP PO SCH ×2 (09:19→19:58)
[2022-06-11] MEDS: FUROSEMIDE 40 MG TABLET PO SCH (09:19)
[2022-06-11] MEDS: FAMOTIDINE 20MG VIAL IV SCH ×2 (09:20→19:58)
[2022-06-11] MEDS: BENZTROPINE 0.5MG TAB PO SCH ×2 (09:20→19:59)
[2022-06-11] MEDS: ENOXAPARIN SODIUM 40 MG/0.4 ML SYRINGE SQ SCH (09:20)
[2022-06-11] MEDS: APIXABAN 5 MG TABLET PO SCH ×2 (09:20→19:58)
[2022-06-11] MEDS: Vitamin B Complex/Vit C/Folic Acid PO SCH (09:20)
[2022-06-11] MEDS: TERBINAFINE HCL 15 GM TUBE TP SCH ×2 (09:21→20:00)
[2022-06-11] MEDS ORDERED: FLUOXETINE HCL 20 MG CAPSULE PO SCH (11:00)
[2022-06-11 12:00] VITALS: BP 118/57
[2022-06-11 16:00] VITALS: BP 131/59
[2022-06-11] MEDS: CYANOCOBALAMIN (VITAMIN B-12) 1000 MCG/ML 1ML VIAL IM SCH (16:55)
[2022-06-11] MEDS: QUETIAPINE FUMARATE 100 MG TAB PO SCH (19:59)
[2022-06-11] MEDS: ATORVASTATIN 20 MG TABLET PO SCH (19:59)
[2022-06-11] MEDS: DONEPEZIL HCL 5 MG TAB PO SCH (19:59)
[2022-06-11 20:25] VITALS: BP 138/86
[2022-06-11 23:39] VITALS: BP 142/65
[2022-06-12] MEDS: DIVALPROEX SODIUM 250 MG TABLET.DR PO SCH ×3 (03:00→20:20)
[2022-06-12 03:16] VITALS: BP 136/69
[2022-06-12 04:53] LABS: HEMOGLOBIN A1C 4.7 % (4.0-6.0)
[2022-06-12] MEDS: CLONAZEPAM 1MG TAB PO SCH ×3 (06:20→23:01)
[2022-06-12] MEDS: LEVOTHYROXINE 75 MCG TABLET PO SCH (06:20)
[2022-06-12] MEDS: INSULIN HUMULIN R 100 UNIT/ML 3ML SQ SCH ×4 (06:22→20:20)
[2022-06-12 08:00] VITALS: BP 133/59
[2022-06-12] MEDS: FAMOTIDINE 20MG VIAL IV SCH ×2 (09:28→20:17)
[2022-06-12] MEDS: BENZTROPINE 0.5MG TAB PO SCH ×2 (09:28→20:17)
[2022-06-12] MEDS: Vitamin B Complex/Vit C/Folic Acid PO SCH (09:29)
[2022-06-12] MEDS: LACTULOSE 20 GM/30 ML UDCUP PO SCH ×2 (09:29→20:17)
[2022-06-12] MEDS: FUROSEMIDE 40 MG TABLET PO SCH (09:29)
[2022-06-12] MEDS: CYANOCOBALAMIN (VITAMIN B-12) 1000 MCG/ML 1ML VIAL IM SCH (09:29)
[2022-06-12] MEDS: FLUOXETINE HCL 10 MG CAPSULE PO SCH (09:29)
[2022-06-12] MEDS: APIXABAN 5 MG TABLET PO SCH ×2 (09:30→20:17)
[2022-06-12] MEDS: TERBINAFINE HCL 15 GM TUBE TP SCH ×2 (09:30→20:31)
[2022-06-12 11:45] VITALS: BP 107/57
[2022-06-12 15:58] VITALS: BP 130/57
[2022-06-12 20:03] VITALS: BP 137/53
[2022-06-12] MEDS: ATORVASTATIN 20 MG TABLET PO SCH (20:17)
[2022-06-12] MEDS: DONEPEZIL HCL 5 MG TAB PO SCH (20:17)
[2022-06-12] MEDS: QUETIAPINE FUMARATE 100 MG TAB PO SCH (20:17)
[2022-06-13] VITALS (7 sets, daily range): BP systolic 107–147; BP diastolic 42–68
[2022-06-13] MEDS: DIVALPROEX SODIUM 250 MG TABLET.DR PO SCH ×4 (02:30→19:52)
[2022-06-13] MEDS: INSULIN HUMULIN R 100 UNIT/ML 3ML SQ SCH ×4 (06:17→20:07)
[2022-06-13] MEDS: LEVOTHYROXINE 75 MCG TABLET PO SCH (06:18)
[2022-06-13] MEDS: CLONAZEPAM 1MG TAB PO SCH ×3 (06:18→21:46)
[2022-06-13] MEDS: APIXABAN 5 MG TABLET PO SCH ×2 (09:17→19:52)
[2022-06-13] MEDS: Vitamin B Complex/Vit C/Folic Acid PO SCH (09:17)
[2022-06-13] MEDS: FAMOTIDINE 20MG VIAL IV SCH ×2 (09:17→19:51)
[2022-06-13] MEDS: BENZTROPINE 0.5MG TAB PO SCH ×2 (09:17→19:52)
[2022-06-13] MEDS: FUROSEMIDE 40 MG TABLET PO SCH (09:18)
[2022-06-13] MEDS: FLUOXETINE HCL 10 MG CAPSULE PO SCH (09:18)
[2022-06-13] MEDS: LACTULOSE 20 GM/30 ML UDCUP PO SCH ×2 (09:19→19:51)
[2022-06-13] MEDS: TERBINAFINE HCL 15 GM TUBE TP SCH ×2 (09:21→19:53)
[2022-06-13] MEDS: CYANOCOBALAMIN (VITAMIN B-12) 1000 MCG/ML 1ML VIAL IM SCH (09:25)
[2022-06-13] MEDS ORDERED: EPOETIN ALFA-EPBX (NON-ESRD) 10,000 UNIT/ML VIAL SQ SCH (15:30)
[2022-06-13] MEDS ORDERED: IRON SUCROSE COMPLEX 500 MG in 0.9%NACL 50ML 50 ML IV SCH (15:30)
[2022-06-13 15:43] LABS: THYROID STIMULATING HORMONE 0.75 uIU/mL (0.36-3.74)
[2022-06-13] MEDS ORDERED: PHARMACY COMMUNICATION MISC SCH (16:30)
[2022-06-13] MEDS: QUETIAPINE FUMARATE 100 MG TAB PO SCH (19:51)
[2022-06-13] MEDS: ATORVASTATIN 20 MG TABLET PO SCH (19:52)
[2022-06-13] MEDS: DONEPEZIL HCL 5 MG TAB PO SCH (19:52)
[2022-06-14] MEDS: DIVALPROEX SODIUM 250 MG TABLET.DR PO SCH ×4 (02:38→21:01)
[2022-06-14 03:59] VITALS: BP 118/60
[2022-06-14] MEDS: CLONAZEPAM 1MG TAB PO SCH ×3 (05:10→21:45)
[2022-06-14] MEDS: LEVOTHYROXINE 75 MCG TABLET PO SCH (05:12)
[2022-06-14 06:06] LABS: BASOPHILS % (AUTO) 1.7 % (0.0-5.0); EOSINOPHILS % (AUTO) 3.4 % (0.0-8.0); HEMATOCRIT 34.3 % (36-48); LYMPHOCYTES % (AUTO) 57.5 % (21.0-51.0); MEAN CORPUSCULAR HEMOGLOBIN 28.9 pg (27.0-33.0); MEAN CORPUSCULAR HGB CONC 31.2 g/dL (32.0-36.0); MEAN CORPUSCULAR VOLUME 92.7 fL (79-99); MONOCYTES % (AUTO) 12.7 % (3.0-13.0); NEUTROPHILS % (AUTO) 23.9 % (40.0-77.0); PLATELET COUNT (AUTO) 336 K/uL (130-400); RED CELL DISTRIBUTION WIDTH 16.7 % (11.0-15.5); WHITE BLOOD COUNT (AUTO) 4.7 K/uL (4.8-10.8)
[2022-06-14 06:13] LABS: CREATININE 0.8 mg/dL (0.5-1.5); MAGNESIUM 1.7 mg/dL (1.80-2.40); PHOSPHORUS 4.1 mg/dL (2.5-4.9); POTASSIUM 4.1 mmol/L (3.5-5.1)
[2022-06-14 06:27] LABS: B-TYPE NATRIURETIC PEPTIDE 25 pg/mL (0-100)
[2022-06-14 06:29] LABS: % IRON SATURATION 95.8 % (22-44)
[2022-06-14] MEDS: INSULIN HUMULIN R 100 UNIT/ML 3ML SQ SCH ×4 (06:31→21:00)
[2022-06-14] MEDS: MAGNESIUM 2GM PREMIX 50ML 50 ML IV PRN (06:44)
[2022-06-14 07:55] VITALS: BP 103/44
[2022-06-14] MEDS: APIXABAN 5 MG TABLET PO SCH ×2 (09:16→21:02)
[2022-06-14] MEDS: FUROSEMIDE 40 MG TABLET PO SCH (09:16)
[2022-06-14] MEDS: Vitamin B Complex/Vit C/Folic Acid PO SCH (09:16)
[2022-06-14] MEDS: FLUOXETINE HCL 10 MG CAPSULE PO SCH (09:16)
[2022-06-14] MEDS: LACTULOSE 20 GM/30 ML UDCUP PO SCH ×2 (09:16→21:01)
[2022-06-14] MEDS: BENZTROPINE 0.5MG TAB PO SCH ×2 (09:17→21:01)
[2022-06-14] MEDS: FAMOTIDINE 20MG VIAL IV SCH ×2 (09:17→21:00)
[2022-06-14] MEDS: CYANOCOBALAMIN (VITAMIN B-12) 1000 MCG/ML 1ML VIAL IM SCH (09:17)
[2022-06-14] MEDS: TERBINAFINE HCL 15 GM TUBE TP SCH ×2 (09:21→21:02)
[2022-06-14 11:36] VITALS: BP 117/55
[2022-06-14 16:39] VITALS: BP 117/47
[2022-06-14 19:50] VITALS: BP 131/58
[2022-06-14] MEDS: QUETIAPINE FUMARATE 100 MG TAB PO SCH (21:01)
[2022-06-14] MEDS: ATORVASTATIN 20 MG TABLET PO SCH (21:01)
[2022-06-14] MEDS: DONEPEZIL HCL 5 MG TAB PO SCH (21:02)
[2022-06-14 23:42] VITALS: BP 115/41
[2022-06-15] MEDS: DIVALPROEX SODIUM 250 MG TABLET.DR PO SCH ×4 (02:27→23:15)
[2022-06-15 03:41] VITALS: BP 121/59
[2022-06-15] MEDS: CLONAZEPAM 1MG TAB PO SCH ×3 (05:27→23:14)
[2022-06-15] MEDS: LEVOTHYROXINE 75 MCG TABLET PO SCH (05:28)
[2022-06-15] MEDS ORDERED: MORPHINE 4 MG SYG IVP ONE (05:30)
[2022-06-15] MEDS: INSULIN HUMULIN R 100 UNIT/ML 3ML SQ SCH ×4 (06:19→23:15)
[2022-06-15] MEDS: MAGNESIUM 2GM PREMIX 50ML 50 ML IV PRN (06:52)
[2022-06-15 08:00] VITALS: BP 106/50
[2022-06-15] MEDS: FLUOXETINE HCL 10 MG CAPSULE PO SCH (09:11)
[2022-06-15] MEDS: LACTULOSE 20 GM/30 ML UDCUP PO SCH ×2 (09:11→23:13)
[2022-06-15] MEDS: Vitamin B Complex/Vit C/Folic Acid PO SCH (09:11)
[2022-06-15] MEDS: FAMOTIDINE 20MG VIAL IV SCH ×2 (09:11→23:13)
[2022-06-15] MEDS: APIXABAN 5 MG TABLET PO SCH ×2 (09:12→23:14)
[2022-06-15] MEDS: BENZTROPINE 0.5MG TAB PO SCH ×2 (09:12→23:14)
[2022-06-15] MEDS: FUROSEMIDE 40 MG TABLET PO SCH (09:12)
[2022-06-15] MEDS: TERBINAFINE HCL 15 GM TUBE TP SCH ×2 (09:18→21:00)
[2022-06-15] MEDS: CYANOCOBALAMIN (VITAMIN B-12) 1000 MCG/ML 1ML VIAL IM SCH (10:50)
[2022-06-15 11:35] VITALS: BP 96/56
[2022-06-15 16:00] VITALS: BP 112/52
[2022-06-15 20:05] VITALS: BP 117/54
[2022-06-15] MEDS: QUETIAPINE FUMARATE 100 MG TAB PO SCH (23:14)
[2022-06-15] MEDS: DONEPEZIL HCL 5 MG TAB PO SCH (23:14)
[2022-06-15] MEDS: ATORVASTATIN 20 MG TABLET PO SCH (23:14)
[2022-06-15 23:26] VITALS: BP 136/75
[2022-06-16] MEDS: DIVALPROEX SODIUM 250 MG TABLET.DR PO SCH ×4 (02:01→21:50)
[2022-06-16 03:24] VITALS: BP 110/52
[2022-06-16] MEDS: CLONAZEPAM 1MG TAB PO SCH ×3 (05:06→21:49)
[2022-06-16] MEDS: INSULIN HUMULIN R 100 UNIT/ML 3ML SQ SCH ×4 (06:31→21:00)
[2022-06-16] MEDS: LEVOTHYROXINE 75 MCG TABLET PO SCH (06:31)
[2022-06-16 08:00] VITALS: BP 128/61
[2022-06-16] MEDS: FAMOTIDINE 20MG VIAL IV SCH ×2 (09:23→21:49)
[2022-06-16] MEDS: LACTULOSE 20 GM/30 ML UDCUP PO SCH ×2 (09:23→21:57)
[2022-06-16] MEDS: BENZTROPINE 0.5MG TAB PO SCH ×2 (09:23→21:49)
[2022-06-16] MEDS: FLUOXETINE HCL 10 MG CAPSULE PO SCH (09:23)
[2022-06-16] MEDS: FUROSEMIDE 40 MG TABLET PO SCH (09:24)
[2022-06-16] MEDS: Vitamin B Complex/Vit C/Folic Acid PO SCH (09:24)
[2022-06-16] MEDS: APIXABAN 5 MG TABLET PO SCH ×2 (09:24→21:50)
[2022-06-16] MEDS: TERBINAFINE HCL 15 GM TUBE TP SCH ×2 (09:27→21:51)
[2022-06-16 12:00] VITALS: BP 137/70
[2022-06-16 16:00] VITALS: BP 139/63
[2022-06-16 19:00] VITALS: BP 130/58
[2022-06-16] MEDS: ATORVASTATIN 20 MG TABLET PO SCH (21:49)
[2022-06-16] MEDS: DONEPEZIL HCL 5 MG TAB PO SCH (21:49)
[2022-06-16] MEDS: QUETIAPINE FUMARATE 100 MG TAB PO SCH (21:50)
[2022-06-16 23:51] VITALS: BP 140/62
[2022-06-17] MEDS: DIVALPROEX SODIUM 250 MG TABLET.DR PO SCH ×3 (02:37→23:18)
[2022-06-17 04:44] VITALS: BP 121/56
[2022-06-17] MEDS: LEVOTHYROXINE 75 MCG TABLET PO SCH (05:34)
[2022-06-17] MEDS: CLONAZEPAM 1MG TAB PO SCH ×3 (05:34→23:18)
[2022-06-17] MEDS: INSULIN HUMULIN R 100 UNIT/ML 3ML SQ SCH ×4 (06:27→21:00)
[2022-06-17 08:00] VITALS: BP 133/67
[2022-06-17] MEDS: APIXABAN 5 MG TABLET PO SCH (08:09)
[2022-06-17] MEDS: BENZTROPINE 0.5MG TAB PO SCH ×2 (08:09→20:27)
[2022-06-17] MEDS: Vitamin B Complex/Vit C/Folic Acid PO SCH (08:09)
[2022-06-17] MEDS: FLUOXETINE HCL 10 MG CAPSULE PO SCH (08:09)
[2022-06-17] MEDS: FAMOTIDINE 20MG VIAL IV SCH ×2 (08:10→20:27)
[2022-06-17] MEDS: TERBINAFINE HCL 15 GM TUBE TP SCH ×2 (08:10→20:28)
[2022-06-17] MEDS: LACTULOSE 20 GM/30 ML UDCUP PO SCH ×2 (08:10→20:27)
[2022-06-17] MEDS: FUROSEMIDE 40 MG TABLET PO SCH (08:10)
[2022-06-17 11:18] LABS: BASOPHILS % (AUTO) 1.6 % (0.0-5.0); EOSINOPHILS % (AUTO) 3.3 % (0.0-8.0); HEMATOCRIT 40.2 % (36-48); LYMPHOCYTES % (AUTO) 53.7 % (21.0-51.0); MEAN CORPUSCULAR HEMOGLOBIN 29.3 pg (27.0-33.0); MEAN CORPUSCULAR HGB CONC 30.6 g/dL (32.0-36.0); MEAN CORPUSCULAR VOLUME 95.7 fL (79-99); MONOCYTES % (AUTO) 12.3 % (3.0-13.0); NEUTROPHILS % (AUTO) 28.6 % (40.0-77.0); PLATELET COUNT (AUTO) 258 K/uL (130-400); RED CELL DISTRIBUTION WIDTH 17.8 % (11.0-15.5); WHITE BLOOD COUNT (AUTO) 3.7 K/uL (4.8-10.8)
[2022-06-17 11:33] LABS: MAGNESIUM 1.7 mg/dL (1.80-2.40); PHOSPHORUS 4.6 mg/dL (2.5-4.9); TOTAL PROTEIN, SERUM 7.8 g/dL (6.0-8.3)
[2022-06-17 11:42] LABS: % IRON SATURATION 17.5 % (22-44)
[2022-06-17 12:00] VITALS: BP 119/61
[2022-06-17] MEDS ORDERED: DIVALPROEX SODIUM 250 MG TABLET.DR PO SCH (14:00)
[2022-06-17 16:00] VITALS: BP 148/63
[2022-06-17 20:00] VITALS: BP 123/56
[2022-06-17] MEDS: ENOXAPARIN SODIUM 80 MG/0.8 ML SQ SCH (20:27)
[2022-06-17] MEDS: ATORVASTATIN 20 MG TABLET PO SCH (20:27)
[2022-06-17] MEDS: QUETIAPINE FUMARATE 100 MG TAB PO SCH (20:27)
[2022-06-17] MEDS: DONEPEZIL HCL 5 MG TAB PO SCH (20:27)
[2022-06-17] MEDS ORDERED: ENOXAPARIN SODIUM 1 MG/KG SQ SCH (21:00)
[2022-06-17] MEDS: MAGNESIUM 2GM PREMIX 50ML 50 ML IV PRN (23:19)
[2022-06-17 23:58] VITALS: BP 132/56
[2022-06-18 04:08] VITALS: BP 111/58
[2022-06-18 04:43] LABS: BASOPHILS % (AUTO) 1.1 % (0.0-5.0); EOSINOPHILS % (AUTO) 1.3 % (0.0-8.0); HEMATOCRIT 35.4 % (36-48); LYMPHOCYTES % (AUTO) 62.3 % (21.0-51.0); MEAN CORPUSCULAR HEMOGLOBIN 29.5 pg (27.0-33.0); MEAN CORPUSCULAR HGB CONC 31.6 g/dL (32.0-36.0); MEAN CORPUSCULAR VOLUME 93.2 fL (79-99); MONOCYTES % (AUTO) 11.7 % (3.0-13.0); PLATELET COUNT (AUTO) 257 K/uL (130-400); RED CELL DISTRIBUTION WIDTH 17.8 % (11.0-15.5); WHITE BLOOD COUNT (AUTO) 5.3 K/uL (4.8-10.8)
[2022-06-18 05:02] LABS: ALBUMIN 2.6 g/dL (3.5-5.0); POTASSIUM 4.6 mmol/L (3.5-5.1)
[2022-06-18] MEDS: DIVALPROEX SODIUM 250 MG TABLET.DR PO SCH ×3 (06:00→22:09)
[2022-06-18] MEDS: CLONAZEPAM 1MG TAB PO SCH ×3 (06:00→22:09)
[2022-06-18] MEDS: INSULIN HUMULIN R 100 UNIT/ML 3ML SQ SCH ×4 (06:09→20:10)
[2022-06-18] MEDS: LEVOTHYROXINE 75 MCG TABLET PO SCH (06:30)
[2022-06-18 08:00] VITALS: BP 131/55
[2022-06-18] MEDS: ENOXAPARIN SODIUM 80 MG/0.8 ML SQ SCH ×2 (10:54→20:07)
[2022-06-18] MEDS: BENZTROPINE 0.5MG TAB PO SCH ×2 (10:55→20:10)
[2022-06-18] MEDS: FLUOXETINE HCL 10 MG CAPSULE PO SCH (10:55)
[2022-06-18] MEDS: Vitamin B Complex/Vit C/Folic Acid PO SCH (10:55)
[2022-06-18] MEDS: FUROSEMIDE 40 MG TABLET PO SCH (10:55)
[2022-06-18] MEDS: FAMOTIDINE 20MG VIAL IV SCH ×2 (10:56→20:03)
[2022-06-18] MEDS: LACTULOSE 20 GM/30 ML UDCUP PO SCH ×2 (10:56→20:09)
[2022-06-18 12:00] VITALS: BP 139/49
[2022-06-18] MEDS: TERBINAFINE HCL 15 GM TUBE TP SCH ×2 (12:05→20:13)
[2022-06-18 16:00] VITALS: BP 119/49
[2022-06-18 19:53] VITALS: BP 157/72
[2022-06-18] MEDS: DONEPEZIL HCL 5 MG TAB PO SCH (20:10)
[2022-06-18] MEDS: ATORVASTATIN 20 MG TABLET PO SCH (20:10)
[2022-06-18] MEDS: QUETIAPINE FUMARATE 100 MG TAB PO SCH (20:10)
[2022-06-18 23:47] VITALS: BP 128/62
[2022-06-19 04:07] VITALS: BP 124/86
[2022-06-19] MEDS: CLONAZEPAM 1MG TAB PO SCH ×3 (05:34→22:18)
[2022-06-19] MEDS: DIVALPROEX SODIUM 250 MG TABLET.DR PO SCH ×3 (05:34→22:18)
[2022-06-19] MEDS: LEVOTHYROXINE 75 MCG TABLET PO SCH (05:34)
[2022-06-19] MEDS: INSULIN HUMULIN R 100 UNIT/ML 3ML SQ SCH ×4 (06:38→21:00)
[2022-06-19 08:00] VITALS: BP 108/49
[2022-06-19] MEDS: LACTULOSE 20 GM/30 ML UDCUP PO SCH ×2 (09:45→22:18)
[2022-06-19] MEDS: BENZTROPINE 0.5MG TAB PO SCH ×2 (09:46→22:19)
[2022-06-19] MEDS: Vitamin B Complex/Vit C/Folic Acid PO SCH (09:46)
[2022-06-19] MEDS: FUROSEMIDE 40 MG TABLET PO SCH (09:46)
[2022-06-19] MEDS: FAMOTIDINE 20MG VIAL IV SCH ×2 (09:46→22:19)
[2022-06-19] MEDS: FLUOXETINE HCL 10 MG CAPSULE PO SCH (09:46)
[2022-06-19] MEDS: ENOXAPARIN SODIUM 80 MG/0.8 ML SQ SCH ×2 (09:47→22:21)
[2022-06-19] MEDS: TERBINAFINE HCL 15 GM TUBE TP SCH ×2 (09:47→22:27)
[2022-06-19 11:50] VITALS: BP 135/65
[2022-06-19 16:00] VITALS: BP 137/60
[2022-06-19 19:59] VITALS: BP 148/61
[2022-06-19] MEDS: ATORVASTATIN 20 MG TABLET PO SCH (22:18)
[2022-06-19] MEDS: QUETIAPINE FUMARATE 100 MG TAB PO SCH (22:19)
[2022-06-19] MEDS: DONEPEZIL HCL 5 MG TAB PO SCH (22:19)
[2022-06-19 23:24] VITALS: BP 109/53
[2022-06-20 03:15] VITALS: BP 115/55
[2022-06-20] MEDS: DIVALPROEX SODIUM 250 MG TABLET.DR PO SCH ×3 (06:03→21:27)
[2022-06-20] MEDS: LEVOTHYROXINE 75 MCG TABLET PO SCH (06:03)
[2022-06-20] MEDS: CLONAZEPAM 1MG TAB PO SCH ×3 (06:03→21:27)
[2022-06-20] MEDS: INSULIN HUMULIN R 100 UNIT/ML 3ML SQ SCH ×4 (06:04→20:57)
[2022-06-20 08:00] VITALS: BP 86/41
[2022-06-20] MEDS: BENZTROPINE 0.5MG TAB PO SCH ×2 (08:57→20:50)
[2022-06-20] MEDS: ENOXAPARIN SODIUM 80 MG/0.8 ML SQ SCH (08:57)
[2022-06-20] MEDS: LACTULOSE 20 GM/30 ML UDCUP PO SCH ×2 (08:57→20:51)
[2022-06-20] MEDS: FLUOXETINE HCL 10 MG CAPSULE PO SCH (08:57)
[2022-06-20] MEDS: Vitamin B Complex/Vit C/Folic Acid PO SCH (08:58)
[2022-06-20] MEDS: FAMOTIDINE 20MG VIAL IV SCH ×2 (08:58→20:50)
[2022-06-20] MEDS: TERBINAFINE HCL 15 GM TUBE TP SCH ×2 (08:58→21:27)
[2022-06-20] MEDS: FUROSEMIDE 40 MG TABLET PO SCH (08:58)
[2022-06-20 11:55] VITALS: BP 98/41
[2022-06-20 16:00] VITALS: BP 124/63
[2022-06-20 20:00] VITALS: BP 133/59
[2022-06-20] MEDS: DONEPEZIL HCL 5 MG TAB PO SCH (20:50)
[2022-06-20] MEDS: QUETIAPINE FUMARATE 100 MG TAB PO SCH (20:50)
[2022-06-20] MEDS: ATORVASTATIN 20 MG TABLET PO SCH (20:50)
[2022-06-21] VITALS: BP 134/61
[2022-06-21 04:00] VITALS: BP 138/62
[2022-06-21] MEDS: CLONAZEPAM 1MG TAB PO SCH ×3 (06:05→21:46)
[2022-06-21] MEDS: DIVALPROEX SODIUM 250 MG TABLET.DR PO SCH ×3 (06:05→21:45)
[2022-06-21] MEDS: LEVOTHYROXINE 75 MCG TABLET PO SCH (06:05)
[2022-06-21] MEDS: INSULIN HUMULIN R 100 UNIT/ML 3ML SQ SCH ×4 (07:29→21:00)
[2022-06-21 07:30] VITALS: BP 110/42
[2022-06-21] MEDS: FLUOXETINE HCL 10 MG CAPSULE PO SCH (09:07)
[2022-06-21] MEDS: BENZTROPINE 0.5MG TAB PO SCH ×2 (09:07→21:46)
[2022-06-21] MEDS: FUROSEMIDE 40 MG TABLET PO SCH (09:07)
[2022-06-21] MEDS: FAMOTIDINE 20MG VIAL IV SCH ×2 (09:07→21:46)
[2022-06-21] MEDS: LACTULOSE 20 GM/30 ML UDCUP PO SCH ×2 (09:07→21:46)
[2022-06-21] MEDS: Vitamin B Complex/Vit C/Folic Acid PO SCH (09:07)
[2022-06-21] MEDS: ENOXAPARIN SODIUM 80 MG/0.8 ML SQ SCH (09:08)
[2022-06-21] MEDS: TERBINAFINE HCL 15 GM TUBE TP SCH ×3 (09:09→21:47)
[2022-06-21 11:30] VITALS: BP 115/45
[2022-06-21 16:00] VITALS: BP 120/43
[2022-06-21] MEDS: ATORVASTATIN 20 MG TABLET PO SCH (21:46)
[2022-06-21] MEDS: QUETIAPINE FUMARATE 100 MG TAB PO SCH (21:46)
[2022-06-21] MEDS: DONEPEZIL HCL 5 MG TAB PO SCH (21:46)
[2022-06-22 00:21] VITALS: BP 112/52
[2022-06-22 04:29] VITALS: BP 112/62
[2022-06-22] MEDS: DIVALPROEX SODIUM 250 MG TABLET.DR PO SCH ×3 (05:07→22:00)
[2022-06-22] MEDS: CLONAZEPAM 1MG TAB PO SCH ×2 (05:07→20:28)
[2022-06-22] MEDS: LEVOTHYROXINE 75 MCG TABLET PO SCH (05:08)
[2022-06-22 05:40] LABS: HEMATOCRIT 40.1 % (36-48); MEAN CORPUSCULAR HEMOGLOBIN 29.3 pg (27.0-33.0); MEAN CORPUSCULAR HGB CONC 31.9 g/dL (32.0-36.0); MEAN CORPUSCULAR VOLUME 91.8 fL (79-99); RED BLOOD CELL COUNT(AUTO) 4.37 MIL/uL (4.00-5.50); RED CELL DISTRIBUTION WIDTH 17.2 % (11.0-15.5); WHITE BLOOD COUNT (AUTO) 4.2 K/uL (4.8-10.8)
[2022-06-22 05:58] LABS: CREATININE 0.9 mg/dL (0.5-1.5); MAGNESIUM 1.8 mg/dL (1.80-2.40); PHOSPHORUS 4.1 mg/dL (2.5-4.9); POTASSIUM 4.3 mmol/L (3.5-5.1)
[2022-06-22] MEDS: MAGNESIUM 2GM PREMIX 50ML 50 ML IV PRN (06:13)
[2022-06-22] MEDS: INSULIN HUMULIN R 100 UNIT/ML 3ML SQ SCH ×4 (06:14→20:29)
[2022-06-22 07:50] VITALS: BP 135/56
[2022-06-22] MEDS: FUROSEMIDE 40 MG TABLET PO SCH (09:31)
[2022-06-22] MEDS: FAMOTIDINE 20MG VIAL IV SCH ×2 (09:31→20:28)
[2022-06-22] MEDS: FLUOXETINE HCL 10 MG CAPSULE PO SCH (09:31)
[2022-06-22] MEDS: Vitamin B Complex/Vit C/Folic Acid PO SCH (09:31)
[2022-06-22] MEDS: BENZTROPINE 0.5MG TAB PO SCH ×2 (09:31→20:29)
[2022-06-22] MEDS: LACTULOSE 20 GM/30 ML UDCUP PO SCH ×2 (09:32→20:28)
[2022-06-22] MEDS: TERBINAFINE HCL 15 GM TUBE TP SCH ×2 (09:34→20:29)
[2022-06-22] MEDS: ENOXAPARIN SODIUM 80 MG/0.8 ML SQ SCH (09:34)
[2022-06-22 11:05] VITALS: BP 133/79
[2022-06-22 15:10] VITALS: BP 142/61
[2022-06-22 20:00] VITALS: BP 110/53
[2022-06-22] MEDS: DONEPEZIL HCL 5 MG TAB PO SCH (20:28)
[2022-06-22] MEDS: ATORVASTATIN 20 MG TABLET PO SCH (20:28)
[2022-06-22] MEDS: QUETIAPINE FUMARATE 100 MG TAB PO SCH (20:28)
[2022-06-23] VITALS: BP 155/60
[2022-06-23 04:00] VITALS: BP 155/59
[2022-06-23] MEDS: DIVALPROEX SODIUM 250 MG TABLET.DR PO SCH ×3 (05:00→21:30)
[2022-06-23] MEDS: LEVOTHYROXINE 75 MCG TABLET PO SCH (05:01)
[2022-06-23] MEDS: INSULIN HUMULIN R 100 UNIT/ML 3ML SQ SCH ×4 (05:50→20:42)
[2022-06-23] MEDS: MAGNESIUM 2GM PREMIX 50ML 50 ML IV PRN (06:28)
[2022-06-23 08:00] VITALS: BP 156/57
[2022-06-23] MEDS: LACTULOSE 20 GM/30 ML UDCUP PO SCH ×2 (09:33→20:41)
[2022-06-23] MEDS: ENOXAPARIN SODIUM 80 MG/0.8 ML SQ SCH (09:34)
[2022-06-23] MEDS: FAMOTIDINE 20MG VIAL IV SCH ×2 (09:34→20:43)
[2022-06-23] MEDS: FLUOXETINE HCL 10 MG CAPSULE PO SCH (09:35)
[2022-06-23] MEDS: CLONAZEPAM 1MG TAB PO SCH ×2 (09:35→20:42)
[2022-06-23] MEDS: FUROSEMIDE 40 MG TABLET PO SCH (09:36)
[2022-06-23] MEDS: Vitamin B Complex/Vit C/Folic Acid PO SCH (09:36)
[2022-06-23] MEDS: BENZTROPINE 0.5MG TAB PO SCH ×2 (09:37→20:42)
[2022-06-23] MEDS: TERBINAFINE HCL 15 GM TUBE TP SCH ×2 (09:38→20:44)
[2022-06-23 11:54] VITALS: BP 127/58
[2022-06-23 16:00] VITALS: BP 119/50
[2022-06-23] MEDS: QUETIAPINE FUMARATE 100 MG TAB PO SCH (20:41)
[2022-06-23] MEDS: DONEPEZIL HCL 5 MG TAB PO SCH (20:42)
[2022-06-23] MEDS: ATORVASTATIN 20 MG TABLET PO SCH (20:42)
[2022-06-23 21:00] VITALS: BP 143/111
[2022-06-24 00:23] VITALS: BP 135/73
[2022-06-24 04:28] VITALS: BP 117/53
[2022-06-24] MEDS: DIVALPROEX SODIUM 250 MG TABLET.DR PO SCH ×3 (05:02→21:05)
[2022-06-24] MEDS: LEVOTHYROXINE 75 MCG TABLET PO SCH (05:03)
[2022-06-24] MEDS: INSULIN HUMULIN R 100 UNIT/ML 3ML SQ SCH ×4 (05:50→20:59)
[2022-06-24] MEDS: MAGNESIUM 2GM PREMIX 50ML 50 ML IV PRN (05:50)
[2022-06-24 08:00] VITALS: BP 106/68
[2022-06-24] MEDS: FLUOXETINE HCL 10 MG CAPSULE PO SCH (08:41)
[2022-06-24] MEDS: Vitamin B Complex/Vit C/Folic Acid PO SCH (08:41)
[2022-06-24] MEDS: FUROSEMIDE 40 MG TABLET PO SCH (08:42)
[2022-06-24] MEDS: BENZTROPINE 0.5MG TAB PO SCH ×2 (08:42→20:58)
[2022-06-24] MEDS: CLONAZEPAM 1MG TAB PO SCH ×2 (08:42→20:57)
[2022-06-24] MEDS: FAMOTIDINE 20MG VIAL IV SCH ×2 (08:42→20:58)
[2022-06-24] MEDS: LACTULOSE 20 GM/30 ML UDCUP PO SCH ×2 (08:42→20:58)
[2022-06-24] MEDS: ENOXAPARIN SODIUM 80 MG/0.8 ML SQ SCH (08:44)
[2022-06-24] MEDS: TERBINAFINE HCL 15 GM TUBE TP SCH ×2 (08:45→21:00)
[2022-06-24 12:00] VITALS: BP 108/39
[2022-06-24 16:00] VITALS: BP 128/58
[2022-06-24 19:00] VITALS: BP 154/56
[2022-06-24] MEDS: ATORVASTATIN 20 MG TABLET PO SCH (20:58)
[2022-06-24] MEDS: DONEPEZIL HCL 5 MG TAB PO SCH (20:58)
[2022-06-24] MEDS: QUETIAPINE FUMARATE 100 MG TAB PO SCH (20:58)
[2022-06-25] VITALS (7 sets, daily range): BP systolic 126–150; BP diastolic 59–75
[2022-06-25] MEDS: DIVALPROEX SODIUM 250 MG TABLET.DR PO SCH ×3 (06:00→22:20)
[2022-06-25] MEDS: LEVOTHYROXINE 75 MCG TABLET PO SCH (06:00)
[2022-06-25] MEDS: INSULIN HUMULIN R 100 UNIT/ML 3ML SQ SCH ×4 (06:38→21:00)
[2022-06-25 07:54] LABS: MEAN CORPUSCULAR HEMOGLOBIN 29.6 pg (27.0-33.0); MEAN CORPUSCULAR HGB CONC 32.4 g/dL (32.0-36.0); MEAN CORPUSCULAR VOLUME 91.6 fL (79-99); RED BLOOD CELL COUNT(AUTO) 4.15 MIL/uL (4.00-5.50); RED CELL DISTRIBUTION WIDTH 17.1 % (11.0-15.5)
[2022-06-25 08:21] LABS: CREATININE 0.9 mg/dL (0.5-1.5); POTASSIUM 4.5 mmol/L (3.5-5.1)
[2022-06-25 08:24] LABS: MAGNESIUM 1.7 mg/dL (1.80-2.40); PHOSPHORUS 3.9 mg/dL (2.5-4.9)
[2022-06-25] MEDS: CLONAZEPAM 1MG TAB PO SCH ×2 (09:00→22:04)
[2022-06-25] MEDS: ENOXAPARIN SODIUM 80 MG/0.8 ML SQ SCH (09:00)
[2022-06-25] MEDS: LACTULOSE 20 GM/30 ML UDCUP PO SCH ×2 (10:25→22:04)
[2022-06-25] MEDS: Vitamin B Complex/Vit C/Folic Acid PO SCH (10:26)
[2022-06-25] MEDS: BENZTROPINE 0.5MG TAB PO SCH ×2 (10:26→22:04)
[2022-06-25] MEDS: FLUOXETINE HCL 10 MG CAPSULE PO SCH (10:26)
[2022-06-25] MEDS: FUROSEMIDE 40 MG TABLET PO SCH (10:27)
[2022-06-25] MEDS: FAMOTIDINE 20MG VIAL IV SCH ×2 (10:30→22:04)
[2022-06-25] MEDS: TERBINAFINE HCL 15 GM TUBE TP SCH ×2 (10:31→22:11)
[2022-06-25] MEDS ORDERED: GLUCAGON 1MG KIT 1 MG ML IM PRN (11:00)
[2022-06-25] MEDS: QUETIAPINE FUMARATE 100 MG TAB PO SCH (22:03)
[2022-06-25] MEDS: ATORVASTATIN 20 MG TABLET PO SCH (22:04)
[2022-06-25] MEDS: DONEPEZIL HCL 5 MG TAB PO SCH (22:04)
[2022-06-25] MEDS: BALSAM PERU/CASTOR OIL 60 GM TUBE TP SCH (22:20)
[2022-06-26 04:00] VITALS: BP 101/54
[2022-06-26] MEDS: DIVALPROEX SODIUM 250 MG TABLET.DR PO SCH ×3 (05:54→21:35)
[2022-06-26] MEDS: LEVOTHYROXINE 75 MCG TABLET PO SCH (05:54)
[2022-06-26] MEDS: INSULIN HUMULIN R 100 UNIT/ML 3ML SQ SCH ×4 (05:59→21:00)
[2022-06-26 07:30] VITALS: BP 105/52
[2022-06-26] MEDS: ENOXAPARIN SODIUM 80 MG/0.8 ML SQ SCH (09:00)
[2022-06-26] MEDS: FAMOTIDINE 20MG VIAL IV SCH ×2 (09:39→21:34)
[2022-06-26] MEDS: BENZTROPINE 0.5MG TAB PO SCH ×2 (09:41→21:40)
[2022-06-26] MEDS: FLUOXETINE HCL 10 MG CAPSULE PO SCH (09:41)
[2022-06-26] MEDS: FUROSEMIDE 40 MG TABLET PO SCH (09:41)
[2022-06-26] MEDS: Vitamin B Complex/Vit C/Folic Acid PO SCH (09:41)
[2022-06-26] MEDS: CLONAZEPAM 1MG TAB PO SCH ×2 (09:42→21:41)
[2022-06-26] MEDS: LACTULOSE 20 GM/30 ML UDCUP PO SCH ×2 (09:42→21:35)
[2022-06-26] MEDS: TERBINAFINE HCL 15 GM TUBE TP SCH ×2 (09:44→21:41)
[2022-06-26] MEDS: BALSAM PERU/CASTOR OIL 60 GM TUBE TP SCH ×2 (09:44→21:36)
[2022-06-26] MEDS: DEXTROSE 50%-WATER 50 ML DISP.SYRIN IV PRN (11:24)
[2022-06-26 11:30] VITALS: BP 114/56
[2022-06-26 15:30] VITALS: BP 127/47
[2022-06-26 19:00] VITALS: BP 117/55
[2022-06-26] MEDS: QUETIAPINE FUMARATE 100 MG TAB PO SCH (21:35)
[2022-06-26] MEDS: DONEPEZIL HCL 5 MG TAB PO SCH (21:40)
[2022-06-26] MEDS: ATORVASTATIN 20 MG TABLET PO SCH (21:41)
[2022-06-27] VITALS: BP 109/53
[2022-06-27 04:00] VITALS: BP 113/56
[2022-06-27] MEDS: LEVOTHYROXINE 75 MCG TABLET PO SCH (06:35)
[2022-06-27] MEDS: DIVALPROEX SODIUM 250 MG TABLET.DR PO SCH ×3 (06:35→21:14)
[2022-06-27] MEDS: INSULIN HUMULIN R 100 UNIT/ML 3ML SQ SCH ×4 (06:35→20:56)
[2022-06-27 07:30] VITALS: BP 94/54
[2022-06-27] MEDS: ENOXAPARIN SODIUM 80 MG/0.8 ML SQ SCH (09:00)
[2022-06-27] MEDS: FLUOXETINE HCL 10 MG CAPSULE PO SCH (09:32)
[2022-06-27] MEDS: BENZTROPINE 0.5MG TAB PO SCH ×2 (09:32→20:57)
[2022-06-27] MEDS: Vitamin B Complex/Vit C/Folic Acid PO SCH (09:32)
[2022-06-27] MEDS: FUROSEMIDE 40 MG TABLET PO SCH (09:32)
[2022-06-27] MEDS: FAMOTIDINE 20MG TAB PO SCH ×2 (09:32→20:57)
[2022-06-27] MEDS: CLONAZEPAM 1MG TAB PO SCH ×2 (09:33→20:58)
[2022-06-27] MEDS: BALSAM PERU/CASTOR OIL 60 GM TUBE TP SCH ×2 (09:33→20:59)
[2022-06-27] MEDS: TERBINAFINE HCL 15 GM TUBE TP SCH ×2 (09:33→20:59)
[2022-06-27] MEDS: LACTULOSE 20 GM/30 ML UDCUP PO SCH ×2 (09:47→20:57)
[2022-06-27 11:00] VITALS: BP 111/45
[2022-06-27 15:30] VITALS: BP 102/54
[2022-06-27 20:00] VITALS: BP 103/56
[2022-06-27] MEDS: ATORVASTATIN 20 MG TABLET PO SCH (20:58)
[2022-06-27] MEDS: QUETIAPINE FUMARATE 100 MG TAB PO SCH (20:58)
[2022-06-27] MEDS: DONEPEZIL HCL 5 MG TAB PO SCH (20:59)
[2022-06-28] VITALS: BP 107/56
[2022-06-28 04:00] VITALS: BP 95/52
[2022-06-28 05:12] LABS: BASOPHILS % (AUTO) 0.7 % (0.0-5.0); EOSINOPHILS % (AUTO) 1.2 % (0.0-8.0); HEMATOCRIT 37.4 % (36-48); LYMPHOCYTES % (AUTO) 63.7 % (21.0-51.0); MEAN CORPUSCULAR HEMOGLOBIN 29.8 pg (27.0-33.0); MEAN CORPUSCULAR HGB CONC 32.6 g/dL (32.0-36.0); MEAN CORPUSCULAR VOLUME 91.4 fL (79-99); NEUTROPHILS % (AUTO) 18.7 % (40.0-77.0); PLATELET COUNT (AUTO) 55 K/uL (130-400); RED BLOOD CELL COUNT(AUTO) 4.09 MIL/uL (4.00-5.50); RED CELL DISTRIBUTION WIDTH 17.3 % (11.0-15.5); WHITE BLOOD COUNT (AUTO) 4.3 K/uL (4.8-10.8)
[2022-06-28 05:36] LABS: CREATININE 1.2 mg/dL (0.5-1.5); MAGNESIUM 1.7 mg/dL (1.80-2.40); PHOSPHORUS 4.4 mg/dL (2.5-4.9); POTASSIUM 4.1 mmol/L (3.5-5.1)
[2022-06-28] MEDS: LEVOTHYROXINE 75 MCG TABLET PO SCH (05:50)
[2022-06-28] MEDS: DIVALPROEX SODIUM 250 MG TABLET.DR PO SCH ×3 (05:50→22:50)
[2022-06-28] MEDS: INSULIN HUMULIN R 100 UNIT/ML 3ML SQ SCH ×4 (05:50→20:55)
[2022-06-28 08:12] VITALS: BP 106/37
[2022-06-28] MEDS: CLONAZEPAM 1MG TAB PO SCH ×2 (08:31→20:55)
[2022-06-28] MEDS: Vitamin B Complex/Vit C/Folic Acid PO SCH (08:31)
[2022-06-28] MEDS: FUROSEMIDE 40 MG TABLET PO SCH (08:31)
[2022-06-28] MEDS: BENZTROPINE 0.5MG TAB PO SCH ×2 (08:31→20:54)
[2022-06-28] MEDS: FLUOXETINE HCL 10 MG CAPSULE PO SCH (08:31)
[2022-06-28] MEDS: FAMOTIDINE 20MG TAB PO SCH ×2 (08:31→20:54)
[2022-06-28] MEDS: LACTULOSE 20 GM/30 ML UDCUP PO SCH ×2 (08:31→20:54)
[2022-06-28] MEDS: ENOXAPARIN SODIUM 80 MG/0.8 ML SQ SCH (08:32)
[2022-06-28] MEDS: TERBINAFINE HCL 15 GM TUBE TP SCH ×2 (08:32→20:55)
[2022-06-28] MEDS: BALSAM PERU/CASTOR OIL 60 GM TUBE TP SCH ×2 (08:32→20:56)
[2022-06-28 12:08] VITALS: BP 117/50
[2022-06-28 16:16] LABS: INR 1.06 (0.85-1.15); PROTHROMBIN TIME 11.5 SEC (9.6-11.6)
[2022-06-28 16:17] LABS: PARTIAL THROMBOPLASTIN TIME 32.4 SEC (26.3-35.5)
[2022-06-28 16:20] VITALS: BP 123/43
[2022-06-28 19:00] VITALS: BP 125/66
[2022-06-28] MEDS: ATORVASTATIN 20 MG TABLET PO SCH (20:54)
[2022-06-28] MEDS: QUETIAPINE FUMARATE 100 MG TAB PO SCH (20:54)
[2022-06-28] MEDS: DONEPEZIL HCL 5 MG TAB PO SCH (20:54)
[2022-06-29] VITALS: BP 133/53
[2022-06-29 04:00] VITALS: BP 136/52
[2022-06-29 06:07] LABS: BASOPHILS % (AUTO) 0.4 % (0.0-5.0); EOSINOPHILS % (AUTO) 1.3 % (0.0-8.0); HEMATOCRIT 36.8 % (36-48); LYMPHOCYTES % (AUTO) 57.8 % (21.0-51.0); MEAN CORPUSCULAR HEMOGLOBIN 30.1 pg (27.0-33.0); MEAN CORPUSCULAR HGB CONC 32.3 g/dL (32.0-36.0); MEAN CORPUSCULAR VOLUME 92.9 fL (79-99); MONOCYTES % (AUTO) 14.1 % (3.0-13.0); PLATELET COUNT (AUTO) 48 K/uL (130-400); RED BLOOD CELL COUNT(AUTO) 3.96 MIL/uL (4.00-5.50); RED CELL DISTRIBUTION WIDTH 17.1 % (11.0-15.5); WHITE BLOOD COUNT (AUTO) 4.7 K/uL (4.8-10.8)
[2022-06-29] MEDS: LEVOTHYROXINE 75 MCG TABLET PO SCH (06:12)
[2022-06-29] MEDS: DIVALPROEX SODIUM 250 MG TABLET.DR PO SCH (06:12)
[2022-06-29 06:15] LABS: POTASSIUM 4.1 mmol/L (3.5-5.1)
[2022-06-29] MEDS: INSULIN HUMULIN R 100 UNIT/ML 3ML SQ SCH ×4 (06:18→20:26)
[2022-06-29 08:00] VITALS: BP 116/51
[2022-06-29] MEDS: BALSAM PERU/CASTOR OIL 60 GM TUBE TP SCH ×2 (09:00→20:29)
[2022-06-29] MEDS: CLONAZEPAM 1MG TAB PO SCH (09:00)
[2022-06-29] MEDS: Vitamin B Complex/Vit C/Folic Acid PO SCH (10:13)
[2022-06-29] MEDS: FAMOTIDINE 20MG TAB PO SCH ×2 (10:13→20:25)
[2022-06-29] MEDS: BENZTROPINE 0.5MG TAB PO SCH ×2 (10:14→20:26)
[2022-06-29] MEDS: FUROSEMIDE 40 MG TABLET PO SCH (10:14)
[2022-06-29] MEDS: FLUOXETINE HCL 10 MG CAPSULE PO SCH (10:15)
[2022-06-29] MEDS: LACTULOSE 20 GM/30 ML UDCUP PO SCH ×2 (10:39→20:25)
[2022-06-29 12:40] VITALS: BP 129/52
[2022-06-29] MEDS: FONDAPARINUX SODIUM 7.5 MG/0.6 ML SQ SCH (13:04)
[2022-06-29] MEDS: TERBINAFINE HCL 15 GM TUBE TP SCH ×2 (13:09→20:29)
[2022-06-29] MEDS: 0.9%NACL 1000ML 1,000 ML IV SCH ×2 (13:09→23:57)
[2022-06-29 16:45] VITALS: BP 151/54
[2022-06-29 19:00] VITALS: BP 118/49
[2022-06-29] MEDS: DONEPEZIL HCL 5 MG TAB PO SCH (20:25)
[2022-06-29] MEDS: ATORVASTATIN 20 MG TABLET PO SCH (20:25)
[2022-06-30] VITALS (7 sets, daily range): BP systolic 108–148; BP diastolic 34–74
[2022-06-30] MEDS: LEVOTHYROXINE 75 MCG TABLET PO SCH (06:19)
[2022-06-30 07:19] LABS: HEMATOCRIT 37.4 % (36-48); MEAN CORPUSCULAR HEMOGLOBIN 29.2 pg (27.0-33.0); MEAN CORPUSCULAR HGB CONC 32.1 g/dL (32.0-36.0); PLATELET COUNT (AUTO) 56 K/uL (130-400); RED BLOOD CELL COUNT(AUTO) 4.11 MIL/uL (4.00-5.50); RED CELL DISTRIBUTION WIDTH 16.7 % (11.0-15.5); WHITE BLOOD COUNT (AUTO) 4.7 K/uL (4.8-10.8)
[2022-06-30] MEDS: INSULIN HUMULIN R 100 UNIT/ML 3ML SQ SCH ×4 (07:30→20:46)
[2022-06-30 08:38] LABS: BAND NEUTROPHILS % (MANUAL) 1 % (0-2); EOSINOPHILS % (MANUAL) 1 % (1-6); LYMPHOCYTES % (MANUAL) 41 % (22-44); MONOCYTES % (MANUAL) 8 % (2-9); SEGMENTED NEUTROPHILS % 49 % (40-70)
[2022-06-30 08:39] LABS: MAN.DIFF COMMENT-IMPRESSION MANUAL DIFFERENTIAL; PLATELET MORPHOLOGY COMMENT MARKED DECREASE
[2022-06-30] MEDS: FUROSEMIDE 40 MG TABLET PO SCH (09:00)
[2022-06-30] MEDS: Vitamin B Complex/Vit C/Folic Acid PO SCH (10:51)
[2022-06-30] MEDS: FLUOXETINE HCL 10 MG CAPSULE PO SCH (10:52)
[2022-06-30] MEDS: BENZTROPINE 0.5MG TAB PO SCH ×2 (10:52→20:43)
[2022-06-30] MEDS: FAMOTIDINE 20MG TAB PO SCH ×2 (11:08→20:43)
[2022-06-30] MEDS: LACTULOSE 20 GM/30 ML UDCUP PO SCH ×2 (11:09→20:45)
[2022-06-30] MEDS: FONDAPARINUX SODIUM 7.5 MG/0.6 ML SQ SCH (11:11)
[2022-06-30] MEDS: BALSAM PERU/CASTOR OIL 60 GM TUBE TP SCH ×2 (11:30→20:47)
[2022-06-30] MEDS: TERBINAFINE HCL 15 GM TUBE TP SCH ×2 (11:30→20:47)
[2022-06-30] MEDS: 0.9%NACL 1000ML 1,000 ML IV SCH (13:10)
[2022-06-30] MEDS: ATORVASTATIN 20 MG TABLET PO SCH (20:43)
[2022-06-30] MEDS: DONEPEZIL HCL 5 MG TAB PO SCH (20:44)
[2022-07-01] MEDS: 0.9%NACL 1000ML 1,000 ML IV SCH ×2 (02:27→16:29)
[2022-07-01 04:05] VITALS: BP 147/59
[2022-07-01 05:44] LABS: BASOPHILS % (AUTO) 0.4 % (0.0-5.0); EOSINOPHILS % (AUTO) 0.9 % (0.0-8.0); HEMATOCRIT 36.3 % (36-48); LYMPHOCYTES % (AUTO) 45.5 % (21.0-51.0); MEAN CORPUSCULAR HEMOGLOBIN 29.6 pg (27.0-33.0); MEAN CORPUSCULAR HGB CONC 32.5 g/dL (32.0-36.0); MEAN CORPUSCULAR VOLUME 91.2 fL (79-99); MONOCYTES % (AUTO) 16.4 % (3.0-13.0); NEUTROPHILS % (AUTO) 36.4 % (40.0-77.0); PLATELET COUNT (AUTO) 51 K/uL (130-400); RED BLOOD CELL COUNT(AUTO) 3.98 MIL/uL (4.00-5.50); RED CELL DISTRIBUTION WIDTH 16.4 % (11.0-15.5); WHITE BLOOD COUNT (AUTO) 4.5 K/uL (4.8-10.8)
[2022-07-01 06:02] LABS: CREATININE 0.8 mg/dL (0.5-1.5)
[2022-07-01] MEDS: LEVOTHYROXINE 75 MCG TABLET PO SCH (06:34)
[2022-07-01] MEDS: INSULIN HUMULIN R 100 UNIT/ML 3ML SQ SCH ×4 (06:36→21:00)
[2022-07-01 07:30] VITALS: BP 157/73
[2022-07-01] MEDS: FAMOTIDINE 20MG TAB PO SCH ×2 (10:04→20:05)
[2022-07-01] MEDS: LACTULOSE 20 GM/30 ML UDCUP PO SCH ×2 (10:04→20:10)
[2022-07-01] MEDS: FUROSEMIDE 40 MG TABLET PO SCH (10:07)
[2022-07-01] MEDS: Vitamin B Complex/Vit C/Folic Acid PO SCH (10:09)
[2022-07-01] MEDS: BENZTROPINE 0.5MG TAB PO SCH ×2 (10:09→20:09)
[2022-07-01] MEDS: FLUOXETINE HCL 10 MG CAPSULE PO SCH (10:09)
[2022-07-01] MEDS: BALSAM PERU/CASTOR OIL 60 GM TUBE TP SCH ×2 (10:10→21:20)
[2022-07-01] MEDS: TERBINAFINE HCL 15 GM TUBE TP SCH ×2 (10:11→21:20)
[2022-07-01] MEDS: FONDAPARINUX SODIUM 7.5 MG/0.6 ML SQ SCH (10:17)
[2022-07-01 11:30] VITALS: BP 170/72
[2022-07-01 15:30] VITALS: BP 134/65
[2022-07-01 20:00] VITALS: BP 137/77
[2022-07-01] MEDS: ATORVASTATIN 20 MG TABLET PO SCH (20:04)
[2022-07-01] MEDS: DONEPEZIL HCL 5 MG TAB PO SCH (20:05)
[2022-07-02] VITALS: BP_SYST 154; BP_SYST 179; BP_DIAS 68; BP_DIAS 77
[2022-07-02 04:00] VITALS: BP 121/71
[2022-07-02] MEDS: 0.9%NACL 1000ML 1,000 ML IV SCH (04:33)
[2022-07-02] MEDS: INSULIN HUMULIN R 100 UNIT/ML 3ML SQ SCH ×4 (06:07→20:52)
[2022-07-02] MEDS: LEVOTHYROXINE 75 MCG TABLET PO SCH (06:25)
[2022-07-02 08:00] VITALS: BP 153/66
[2022-07-02] MEDS: BENZTROPINE 0.5MG TAB PO SCH ×2 (10:02→20:53)
[2022-07-02] MEDS: FAMOTIDINE 20MG TAB PO SCH ×2 (10:02→20:53)
[2022-07-02] MEDS: Vitamin B Complex/Vit C/Folic Acid PO SCH (10:02)
[2022-07-02] MEDS: FUROSEMIDE 40 MG TABLET PO SCH (10:02)
[2022-07-02] MEDS: FLUOXETINE HCL 10 MG CAPSULE PO SCH (10:02)
[2022-07-02] MEDS: LACTULOSE 20 GM/30 ML UDCUP PO SCH ×2 (10:02→20:53)
[2022-07-02] MEDS: FONDAPARINUX SODIUM 7.5 MG/0.6 ML SQ SCH (10:03)
[2022-07-02] MEDS: BALSAM PERU/CASTOR OIL 60 GM TUBE TP SCH ×2 (10:32→20:59)
[2022-07-02] MEDS: TERBINAFINE HCL 15 GM TUBE TP SCH ×2 (10:32→20:59)
[2022-07-02 12:00] VITALS: BP 156/70
[2022-07-02 16:00] VITALS: BP 153/73
[2022-07-02 20:00] VITALS: BP 163/85
[2022-07-02] MEDS: ATORVASTATIN 20 MG TABLET PO SCH (20:52)
[2022-07-02] MEDS: DONEPEZIL HCL 5 MG TAB PO SCH (21:03)
[2022-07-03] VITALS (7 sets, daily range): BP systolic 124–170; BP diastolic 52–90
[2022-07-03] MEDS: LEVOTHYROXINE 75 MCG TABLET PO SCH (06:53)
[2022-07-03] MEDS: INSULIN HUMULIN R 100 UNIT/ML 3ML SQ SCH ×4 (06:55→21:00)
[2022-07-03] MEDS: 0.9%NACL 1000ML 1,000 ML IV SCH ×3 (07:50→21:10)
[2022-07-03] MEDS: FONDAPARINUX SODIUM 7.5 MG/0.6 ML SQ SCH (09:00)
[2022-07-03] MEDS: BENZTROPINE 0.5MG TAB PO SCH ×2 (09:05→22:42)
[2022-07-03] MEDS: FUROSEMIDE 40 MG TABLET PO SCH (09:05)
[2022-07-03] MEDS: FLUOXETINE HCL 10 MG CAPSULE PO SCH (09:05)
[2022-07-03] MEDS: LACTULOSE 20 GM/30 ML UDCUP PO SCH ×2 (09:05→22:42)
[2022-07-03] MEDS: FAMOTIDINE 20MG TAB PO SCH ×2 (09:05→22:42)
[2022-07-03] MEDS: TERBINAFINE HCL 15 GM TUBE TP SCH ×2 (09:06→22:43)
[2022-07-03] MEDS: Vitamin B Complex/Vit C/Folic Acid PO SCH (09:06)
[2022-07-03] MEDS: BALSAM PERU/CASTOR OIL 60 GM TUBE TP SCH ×2 (09:07→22:43)
[2022-07-03] MEDS: ATORVASTATIN 20 MG TABLET PO SCH (22:42)
[2022-07-03] MEDS: DONEPEZIL HCL 5 MG TAB PO SCH (22:42)
[2022-07-04] VITALS: BP 161/88
[2022-07-04 04:00] VITALS: BP 173/73
[2022-07-04 05:27] LABS: BASOPHILS % (AUTO) 0.5 % (0.0-5.0); EOSINOPHILS % (AUTO) 1.2 % (0.0-8.0); HEMATOCRIT 34.5 % (36-48); LYMPHOCYTES % (AUTO) 41.2 % (21.0-51.0); MEAN CORPUSCULAR HEMOGLOBIN 29.6 pg (27.0-33.0); MEAN CORPUSCULAR HGB CONC 33.3 g/dL (32.0-36.0); MEAN CORPUSCULAR VOLUME 88.9 fL (79-99); MONOCYTES % (AUTO) 18.6 % (3.0-13.0); NEUTROPHILS % (AUTO) 38.2 % (40.0-77.0); PLATELET COUNT (AUTO) 108 K/uL (130-400); RED BLOOD CELL COUNT(AUTO) 3.88 MIL/uL (4.00-5.50); RED CELL DISTRIBUTION WIDTH 16.8 % (11.0-15.5); WHITE BLOOD COUNT (AUTO) 7.4 K/uL (4.8-10.8)
[2022-07-04] MEDS: LEVOTHYROXINE 75 MCG TABLET PO SCH (06:07)
[2022-07-04 06:13] LABS: CREATININE 0.6 mg/dL (0.5-1.5); MAGNESIUM 1.4 mg/dL (1.80-2.40); PHOSPHORUS 3.7 mg/dL (2.5-4.9); POTASSIUM 3.6 mmol/L (3.5-5.1)
[2022-07-04] MEDS: MAGNESIUM 2GM PREMIX 50ML 50 ML IV PRN (06:28)
[2022-07-04] MEDS: INSULIN HUMULIN R 100 UNIT/ML 3ML SQ SCH ×4 (07:28→21:00)
[2022-07-04 08:00] VITALS: BP 141/67
[2022-07-04] MEDS: TERBINAFINE HCL 15 GM TUBE TP SCH ×2 (09:00→21:29)
[2022-07-04] MEDS: 0.9%NACL 1000ML 1,000 ML IV SCH (10:30)
[2022-07-04] MEDS: LACTULOSE 20 GM/30 ML UDCUP PO SCH ×2 (11:13→20:06)
[2022-07-04] MEDS: FUROSEMIDE 40 MG TABLET PO SCH (11:14)
[2022-07-04] MEDS: BENZTROPINE 0.5MG TAB PO SCH ×2 (11:14→20:07)
[2022-07-04] MEDS: FLUOXETINE HCL 10 MG CAPSULE PO SCH (11:15)
[2022-07-04] MEDS: FAMOTIDINE 20MG TAB PO SCH ×2 (11:15→20:07)
[2022-07-04] MEDS: Vitamin B Complex/Vit C/Folic Acid PO SCH (11:15)
[2022-07-04] MEDS: FONDAPARINUX SODIUM 7.5 MG/0.6 ML SQ SCH (11:21)
[2022-07-04] MEDS: BALSAM PERU/CASTOR OIL 60 GM TUBE TP SCH ×2 (11:23→21:30)
[2022-07-04 12:00] VITALS: BP 139/65
[2022-07-04 16:00] VITALS: BP 154/71
[2022-07-04 19:00] VITALS: BP 153/74
[2022-07-04] MEDS: ATORVASTATIN 20 MG TABLET PO SCH (20:07)
[2022-07-04] MEDS: DONEPEZIL HCL 5 MG TAB PO SCH (20:07)
[2022-07-05] VITALS: BP 167/73
[2022-07-05 04:00] VITALS: BP 156/58
[2022-07-05 06:23] LABS: BASOPHILS % (AUTO) 0.9 % (0.0-5.0); EOSINOPHILS % (AUTO) 1.4 % (0.0-8.0); LYMPHOCYTES % (AUTO) 45.4 % (21.0-51.0); MEAN CORPUSCULAR HEMOGLOBIN 29.8 pg (27.0-33.0); MEAN CORPUSCULAR HGB CONC 32.6 g/dL (32.0-36.0); MEAN CORPUSCULAR VOLUME 91.4 fL (79-99); MONOCYTES % (AUTO) 17.8 % (3.0-13.0); NEUTROPHILS % (AUTO) 34.2 % (40.0-77.0); PLATELET COUNT (AUTO) 158 K/uL (130-400); RED BLOOD CELL COUNT(AUTO) 3.83 MIL/uL (4.00-5.50)
[2022-07-05] MEDS: LEVOTHYROXINE 75 MCG TABLET PO SCH (06:26)
[2022-07-05] MEDS: INSULIN HUMULIN R 100 UNIT/ML 3ML SQ SCH ×4 (06:31→21:00)
[2022-07-05 06:32] LABS: CREATININE 0.7 mg/dL (0.5-1.5); MAGNESIUM 1.4 mg/dL (1.80-2.40); POTASSIUM 3.4 mmol/L (3.5-5.1)
[2022-07-05 08:00] VITALS: BP 159/84
[2022-07-05] MEDS: TERBINAFINE HCL 15 GM TUBE TP SCH ×2 (09:00→20:20)
[2022-07-05] MEDS: FONDAPARINUX SODIUM 7.5 MG/0.6 ML SQ SCH (09:00)
[2022-07-05] MEDS: FAMOTIDINE 20MG TAB PO SCH ×3 (09:00→20:30)
[2022-07-05] MEDS: Vitamin B Complex/Vit C/Folic Acid PO SCH (09:00)
[2022-07-05] MEDS: BALSAM PERU/CASTOR OIL 60 GM TUBE TP SCH ×2 (09:00→20:20)
[2022-07-05] MEDS: BENZTROPINE 0.5MG TAB PO SCH ×3 (09:00→20:30)
[2022-07-05] MEDS: FLUOXETINE HCL 10 MG CAPSULE PO SCH (09:00)
[2022-07-05] MEDS: LACTULOSE 20 GM/30 ML UDCUP PO SCH ×2 (09:00→20:20)
[2022-07-05] MEDS: FUROSEMIDE 40 MG TABLET PO SCH (09:00)
[2022-07-05 12:00] VITALS: BP 140/63
[2022-07-05] MEDS: MAGNESIUM 2GM PREMIX 50ML 50 ML IV PRN (12:10)
[2022-07-05 16:00] VITALS: BP 141/74
[2022-07-05 20:00] VITALS: BP 144/51
[2022-07-05] MEDS: DONEPEZIL HCL 5 MG TAB PO SCH ×2 (20:19→20:29)
[2022-07-05] MEDS: ATORVASTATIN 20 MG TABLET PO SCH ×2 (20:19→20:30)
[2022-07-05] MEDS: DEXTROSE 50%-WATER 50 ML DISP.SYRIN IV PRN (21:15)
[2022-07-06] VITALS: BP 142/56
[2022-07-06 04:00] VITALS: BP 160/45
[2022-07-06] MEDS: LEVOTHYROXINE 75 MCG TABLET PO SCH (05:42)
[2022-07-06 06:13] LABS: BASOPHILS % (AUTO) 0.8 % (0.0-5.0); EOSINOPHILS % (AUTO) 1.2 % (0.0-8.0); LYMPHOCYTES % (AUTO) 43.1 % (21.0-51.0); MEAN CORPUSCULAR HGB CONC 33.5 g/dL (32.0-36.0); MEAN CORPUSCULAR VOLUME 89.5 fL (79-99); MONOCYTES % (AUTO) 17.3 % (3.0-13.0); NEUTROPHILS % (AUTO) 37.4 % (40.0-77.0); PLATELET COUNT (AUTO) 222 K/uL (130-400); RED CELL DISTRIBUTION WIDTH 16.2 % (11.0-15.5); WHITE BLOOD COUNT (AUTO) 6.6 K/uL (4.8-10.8)
[2022-07-06 06:37] LABS: CREATININE 0.6 mg/dL (0.5-1.5); MAGNESIUM 1.4 mg/dL (1.80-2.40); POTASSIUM 3.6 mmol/L (3.5-5.1)
[2022-07-06] MEDS: MAGNESIUM 2GM PREMIX 50ML 50 ML IV PRN (06:41)
[2022-07-06 08:00] VITALS: BP 138/64
[2022-07-06] MEDS: FUROSEMIDE 40 MG TABLET PO SCH (09:00)
[2022-07-06] MEDS: BENZTROPINE 0.5MG TAB PO SCH (09:00)
[2022-07-06] MEDS: FLUOXETINE HCL 10 MG CAPSULE PO SCH (09:00)
[2022-07-06] MEDS: FONDAPARINUX SODIUM 7.5 MG/0.6 ML SQ SCH (09:00)
[2022-07-06] MEDS: Vitamin B Complex/Vit C/Folic Acid PO SCH (09:00)
[2022-07-06] MEDS: FAMOTIDINE 20MG TAB PO SCH ×2 (09:00→20:40)
[2022-07-06] MEDS: LACTULOSE 20 GM/30 ML UDCUP PO SCH ×2 (09:57→20:40)
[2022-07-06] MEDS: BALSAM PERU/CASTOR OIL 60 GM TUBE TP SCH ×2 (10:00→20:44)
[2022-07-06] MEDS: TERBINAFINE HCL 15 GM TUBE TP SCH ×2 (10:01→20:44)
[2022-07-06 12:00] VITALS: BP 143/72
[2022-07-06] MEDS: DEXTROSE 5 %-0.45 % NACL 1,000 ML IV SCH ×2 (13:21→23:18)
[2022-07-06 16:00] VITALS: BP 164/72
[2022-07-06] MEDS: ATORVASTATIN 20 MG TABLET PO SCH (20:40)
[2022-07-06] MEDS: DRONABINOL 2.5 MG CAP PO SCH (20:40)
[2022-07-06 21:52] VITALS: BP 150/71
[2022-07-07 01:27] VITALS: BP 113/78
[2022-07-07] MEDS: LEVOTHYROXINE 75 MCG TABLET PO SCH ×2 (02:56→18:33)
[2022-07-07 04:35] VITALS: BP 167/72
[2022-07-07 04:35] LABS: BASOPHILS % (AUTO) 0.6 % (0.0-5.0); EOSINOPHILS % (AUTO) 0.9 % (0.0-8.0); HEMATOCRIT 34.2 % (36-48); LYMPHOCYTES % (AUTO) 40.7 % (21.0-51.0); MEAN CORPUSCULAR HEMOGLOBIN 30.1 pg (27.0-33.0); MEAN CORPUSCULAR HGB CONC 33.3 g/dL (32.0-36.0); MEAN CORPUSCULAR VOLUME 90.2 fL (79-99); MONOCYTES % (AUTO) 18.6 % (3.0-13.0); NEUTROPHILS % (AUTO) 38.9 % (40.0-77.0); PLATELET COUNT (AUTO) 242 K/uL (130-400); RED BLOOD CELL COUNT(AUTO) 3.79 MIL/uL (4.00-5.50); RED CELL DISTRIBUTION WIDTH 15.9 % (11.0-15.5); WHITE BLOOD COUNT (AUTO) 6.5 K/uL (4.8-10.8)
[2022-07-07 04:54] LABS: CREATININE 0.5 mg/dL (0.5-1.5); MAGNESIUM 1.4 mg/dL (1.80-2.40); POTASSIUM 3.3 mmol/L (3.5-5.1)
[2022-07-07] MEDS ORDERED: KCL 20 MEQ ERTAB PO PRN (05:00)
[2022-07-07] MEDS ORDERED: LIDOCAINE HCL-MPF 1% 2ML VIAL IV PRN (05:00)
[2022-07-07] MEDS: DEXTROSE 5 %-0.45 % NACL 1,000 ML IV SCH ×3 (05:00→23:45)
[2022-07-07] MEDS: MAGNESIUM 2GM PREMIX 50ML 50 ML IV PRN (05:28)
[2022-07-07 08:00] VITALS: BP 191/86
[2022-07-07] MEDS: DRONABINOL 2.5 MG CAP PO SCH ×2 (09:00→18:32)
[2022-07-07] MEDS: BALSAM PERU/CASTOR OIL 60 GM TUBE TP SCH ×2 (09:00→21:47)
[2022-07-07] MEDS: TERBINAFINE HCL 15 GM TUBE TP SCH ×2 (09:00→21:47)
[2022-07-07] MEDS: FONDAPARINUX SODIUM 7.5 MG/0.6 ML SQ SCH (09:00)
[2022-07-07 10:49] LABS: INR 1.09 (0.85-1.15); PROTHROMBIN TIME 11.8 SEC (9.6-11.6)
[2022-07-07] MEDS: FUROSEMIDE 40 MG TABLET PO SCH (10:58)
[2022-07-07] MEDS: FAMOTIDINE 20MG TAB PO SCH ×2 (10:58→18:32)
[2022-07-07] MEDS: Vitamin B Complex/Vit C/Folic Acid PO SCH (10:58)
[2022-07-07] MEDS: LACTULOSE 20 GM/30 ML UDCUP PO SCH ×2 (10:58→18:32)
[2022-07-07 12:00] VITALS: BP 176/78
[2022-07-07] MEDS: ATORVASTATIN 20 MG TABLET PO SCH (18:32)
[2022-07-07 20:00] VITALS: BP 162/71
[2022-07-07] MEDS: POTASSIUM CHLORIDE 20MEQ/100ML 100 ML IV PRN (23:45)
[2022-07-08] VITALS (7 sets, daily range): BP systolic 137–161; BP diastolic 56–77
[2022-07-08] MEDS: DEXTROSE 5 %-0.45 % NACL 1,000 ML IV SCH ×3 (05:00→20:08)
[2022-07-08 05:12] LABS: BASOPHILS % (AUTO) 0.7 % (0.0-5.0); EOSINOPHILS % (AUTO) 0.5 % (0.0-8.0); HEMATOCRIT 33.8 % (36-48); LYMPHOCYTES % (AUTO) 31.3 % (21.0-51.0); MEAN CORPUSCULAR HEMOGLOBIN 29.9 pg (27.0-33.0); MEAN CORPUSCULAR HGB CONC 34.6 g/dL (32.0-36.0); MEAN CORPUSCULAR VOLUME 86.4 fL (79-99); MONOCYTES % (AUTO) 18.3 % (3.0-13.0); NEUTROPHILS % (AUTO) 48.7 % (40.0-77.0); PLATELET COUNT (AUTO) 287 K/uL (130-400); RED BLOOD CELL COUNT(AUTO) 3.91 MIL/uL (4.00-5.50); RED CELL DISTRIBUTION WIDTH 15.8 % (11.0-15.5); WHITE BLOOD COUNT (AUTO) 8.7 K/uL (4.8-10.8)
[2022-07-08 05:21] LABS: CREATININE 0.5 mg/dL (0.5-1.5); MAGNESIUM 1.6 mg/dL (1.80-2.40); POTASSIUM 3.4 mmol/L (3.5-5.1)
[2022-07-08] MEDS ORDERED: MAGNESIUM 2GM PREMIX 50ML 50 ML IV ONE (05:33)
[2022-07-08] MEDS: POTASSIUM CHLORIDE 20MEQ/100ML 100 ML IV PRN (05:40)
[2022-07-08] MEDS: DRONABINOL 2.5 MG CAP PO SCH ×2 (09:00→20:13)
[2022-07-08] MEDS: FAMOTIDINE 20MG TAB PO SCH ×2 (09:00→20:14)
[2022-07-08] MEDS: BALSAM PERU/CASTOR OIL 60 GM TUBE TP SCH ×2 (09:59→22:08)
[2022-07-08] MEDS: FONDAPARINUX SODIUM 7.5 MG/0.6 ML SQ SCH (09:59)
[2022-07-08] MEDS: TERBINAFINE HCL 15 GM TUBE TP SCH ×2 (09:59→22:09)
[2022-07-08] MEDS: DONEPEZIL HCL 5 MG TAB PO SCH (20:12)
[2022-07-08] MEDS: BENZTROPINE 0.5MG TAB PO SCH (20:13)
[2022-07-09] MEDS: ACETAMINOPHEN 325 MG TAB PO PRN (03:31)
[2022-07-09] MEDS: POTASSIUM CHLORIDE 10% ELIXIR 20 MEQ/15 ML UDCUP PO PRN ×3 (03:32→16:54)
[2022-07-09 03:51] VITALS: BP 143/69
[2022-07-09] MEDS: DEXTROSE 5 %-0.45 % NACL 1,000 ML IV SCH ×3 (04:15→21:12)
[2022-07-09] MEDS: MAGNESIUM 2GM PREMIX 50ML 50 ML IV PRN (04:15)
[2022-07-09] MEDS: LEVOTHYROXINE 75 MCG TABLET PO SCH (04:56)
[2022-07-09 08:00] VITALS: BP 122/54
[2022-07-09] MEDS: BALSAM PERU/CASTOR OIL 60 GM TUBE TP SCH ×2 (09:34→20:44)
[2022-07-09] MEDS: FAMOTIDINE 20MG TAB PO SCH ×2 (09:35→20:43)
[2022-07-09] MEDS: DRONABINOL 2.5 MG CAP PO SCH ×2 (09:35→20:43)
[2022-07-09] MEDS: TERBINAFINE HCL 15 GM TUBE TP SCH ×2 (09:35→20:43)
[2022-07-09] MEDS: FONDAPARINUX SODIUM 7.5 MG/0.6 ML SQ SCH (09:35)
[2022-07-09] MEDS: BENZTROPINE 0.5MG TAB PO SCH ×2 (09:36→20:43)
[2022-07-09 11:54] VITALS: BP 133/62
[2022-07-09 16:00] VITALS: BP 138/75
[2022-07-09 19:55] VITALS: BP 155/74
[2022-07-09] MEDS: DONEPEZIL HCL 5 MG TAB PO SCH (20:43)
[2022-07-09 23:24] VITALS: BP 177/76
[2022-07-10] MEDS: LEVOTHYROXINE 75 MCG TABLET PO SCH (04:09)
[2022-07-10] MEDS: DEXTROSE 5 %-0.45 % NACL 1,000 ML IV SCH ×2 (04:13→13:00)
[2022-07-10 04:15] VITALS: BP 138/72
[2022-07-10 05:47] LABS: MAGNESIUM 1.5 mg/dL (1.80-2.40); POTASSIUM 3.7 mmol/L (3.5-5.1)
[2022-07-10] MEDS: MAGNESIUM 2GM PREMIX 50ML 50 ML IV PRN (06:07)
[2022-07-10 09:20] VITALS: BP 161/70
[2022-07-10] MEDS: FAMOTIDINE 20MG TAB PO SCH ×2 (10:14→21:21)
[2022-07-10] MEDS: FONDAPARINUX SODIUM 7.5 MG/0.6 ML SQ SCH (10:14)
[2022-07-10] MEDS: BENZTROPINE 0.5MG TAB PO SCH ×2 (10:14→21:21)
[2022-07-10] MEDS: DRONABINOL 2.5 MG CAP PO SCH ×2 (10:14→21:21)
[2022-07-10] MEDS: TERBINAFINE HCL 15 GM TUBE TP SCH (10:15)
[2022-07-10] MEDS: BALSAM PERU/CASTOR OIL 60 GM TUBE TP SCH ×2 (10:15→21:22)
[2022-07-10] MEDS: POTASSIUM CHLORIDE 10% ELIXIR 20 MEQ/15 ML UDCUP PO PRN ×2 (10:16→15:52)
[2022-07-10 12:00] VITALS: BP 171/76
[2022-07-10 18:23] VITALS: BP 135/89
[2022-07-10 20:00] VITALS: BP 128/73
[2022-07-10] MEDS: DONEPEZIL HCL 5 MG TAB PO SCH (21:21)
[2022-07-11] VITALS: BP 159/86
[2022-07-11 04:00] VITALS: BP 128/78
[2022-07-11] MEDS: DEXTROSE 5 %-0.45 % NACL 1,000 ML IV SCH ×2 (04:47→13:53)
[2022-07-11 08:44] VITALS: BP 169/69
[2022-07-11] MEDS: FAMOTIDINE 20MG TAB PO SCH ×2 (08:44→21:31)
[2022-07-11] MEDS: DRONABINOL 2.5 MG CAP PO SCH ×2 (08:44→21:43)
[2022-07-11] MEDS: BENZTROPINE 0.5MG TAB PO SCH ×2 (08:44→21:31)
[2022-07-11] MEDS: BALSAM PERU/CASTOR OIL 60 GM TUBE TP SCH ×2 (08:45→21:30)
[2022-07-11] MEDS: FONDAPARINUX SODIUM 7.5 MG/0.6 ML SQ SCH (10:23)
[2022-07-11 10:50] VITALS: BP 122/78
[2022-07-11 16:28] VITALS: BP 157/90
[2022-07-11 20:00] VITALS: BP 130/66
[2022-07-11] MEDS: DONEPEZIL HCL 5 MG TAB PO SCH (21:31)
[2022-07-12] VITALS (7 sets, daily range): BP systolic 117–198; BP diastolic 66–112
[2022-07-12] MEDS: DEXTROSE 5 %-0.45 % NACL 1,000 ML IV SCH ×2 (02:48→15:20)
[2022-07-12] MEDS: FONDAPARINUX SODIUM 7.5 MG/0.6 ML SQ SCH (09:06)
[2022-07-12] MEDS: DRONABINOL 2.5 MG CAP PO SCH ×2 (09:06→20:33)
[2022-07-12] MEDS: BENZTROPINE 0.5MG TAB PO SCH ×2 (09:06→20:33)
[2022-07-12] MEDS: FAMOTIDINE 20MG TAB PO SCH ×2 (09:06→20:33)
[2022-07-12] MEDS: BALSAM PERU/CASTOR OIL 60 GM TUBE TP SCH ×2 (09:07→20:34)
[2022-07-12] MEDS: DONEPEZIL HCL 5 MG TAB PO SCH (20:33)
[2022-07-13] MEDS: DEXTROSE 5 %-0.45 % NACL 1,000 ML IV SCH ×2 (03:41→16:00)
[2022-07-13 03:57] VITALS: BP 155/69
[2022-07-13 08:30] VITALS: BP 157/46
[2022-07-13] MEDS: FAMOTIDINE 20MG TAB PO SCH ×2 (09:45→22:06)
[2022-07-13] MEDS: DRONABINOL 2.5 MG CAP PO SCH (09:45)
[2022-07-13] MEDS: BENZTROPINE 0.5MG TAB PO SCH ×2 (09:46→22:06)
[2022-07-13] MEDS: FONDAPARINUX SODIUM 7.5 MG/0.6 ML SQ SCH (09:46)
[2022-07-13 12:08] VITALS: BP 148/57
[2022-07-13] MEDS: BALSAM PERU/CASTOR OIL 60 GM TUBE TP SCH ×2 (15:27→22:07)
[2022-07-13 16:13] VITALS: BP 171/61
[2022-07-13 19:00] VITALS: BP 151/65
[2022-07-13] MEDS: DONEPEZIL HCL 5 MG TAB PO SCH (22:06)
[2022-07-14] VITALS (7 sets, daily range): BP systolic 125–171; BP diastolic 45–85
[2022-07-14] MEDS: DEXTROSE 5 %-0.45 % NACL 1,000 ML IV SCH ×2 (04:23→17:11)
[2022-07-14] MEDS: BENZTROPINE 0.5MG TAB PO SCH ×2 (10:17→20:03)
[2022-07-14] MEDS: FAMOTIDINE 20MG TAB PO SCH ×2 (10:17→20:02)
[2022-07-14] MEDS: FONDAPARINUX SODIUM 7.5 MG/0.6 ML SQ SCH (10:17)
[2022-07-14] MEDS ORDERED: M.V.I. IV [ADULT] 10 ML, MULTITRACE-4 ADULT 10ML VIAL 3 ML in CLINIMIX-E4.25%AA/D5+LYT2... IV SCH (11:00)
[2022-07-14] MEDS ORDERED: COMPOUND IV REFRIGERATED 1 EACH MISC ONE (13:03)
[2022-07-14] MEDS: BALSAM PERU/CASTOR OIL 60 GM TUBE TP SCH ×2 (13:08→20:02)
[2022-07-14] MEDS: DONEPEZIL HCL 5 MG TAB PO SCH (20:03)
[2022-07-15 04:42] VITALS: BP 157/75
[2022-07-15] MEDS: DEXTROSE 5 %-0.45 % NACL 1,000 ML IV SCH ×2 (06:12→19:51)
[2022-07-15] MEDS: FAMOTIDINE 20MG TAB PO SCH ×2 (07:52→21:19)
[2022-07-15] MEDS: BENZTROPINE 0.5MG TAB PO SCH ×2 (07:52→21:19)
[2022-07-15 08:00] VITALS: BP 147/79
[2022-07-15] MEDS: BALSAM PERU/CASTOR OIL 60 GM TUBE TP SCH ×2 (08:11→21:19)
[2022-07-15] MEDS: FONDAPARINUX SODIUM 7.5 MG/0.6 ML SQ SCH (08:42)
[2022-07-15] MEDS: FAT EMULSIONS 20% 250ML 250 ML IV SCH (10:53)
[2022-07-15 12:00] VITALS: BP 104/51
[2022-07-15] MEDS ORDERED: M.V.I. IV [ADULT] 10 ML, MULTITRACE-4 ADULT 10ML VIAL 3 ML in CLINIMIX-E4.25%AA/D5+LYT2... IV SCH (12:30)
[2022-07-15] MEDS ORDERED: COMPOUND IV REFRIGERATED 1 EACH IVSOLN MISC PRN (13:00)
[2022-07-15 16:00] VITALS: BP 142/73
[2022-07-15 20:33] VITALS: BP 161/79
[2022-07-15] MEDS: DONEPEZIL HCL 5 MG TAB PO SCH (21:18)
[2022-07-16 00:06] VITALS: BP 141/90
[2022-07-16 03:51] VITALS: BP 129/78
[2022-07-16 08:00] VITALS: BP 130/65
[2022-07-16] MEDS: FAMOTIDINE 20MG TAB PO SCH (08:36)
[2022-07-16] MEDS: BENZTROPINE 0.5MG TAB PO SCH ×2 (08:36→19:51)
[2022-07-16] MEDS: FONDAPARINUX SODIUM 7.5 MG/0.6 ML SQ SCH (08:39)
[2022-07-16] MEDS: BALSAM PERU/CASTOR OIL 60 GM TUBE TP SCH ×2 (08:43→21:00)
[2022-07-16] MEDS: DEXTROSE 5 %-0.45 % NACL 1,000 ML IV SCH ×2 (09:11→22:31)
[2022-07-16 12:00] VITALS: BP 116/50
[2022-07-16 16:00] VITALS: BP 127/70
[2022-07-16] MEDS ORDERED: PHARMACY COMMUNICATION MISC SCH (18:00)
[2022-07-16] MEDS: DONEPEZIL HCL 5 MG TAB PO SCH (19:51)
[2022-07-16] MEDS ORDERED: PROMETHAZINE HCL 25 MG/ML 1ML AMPULE IM SCH (20:00)
[2022-07-16 21:19] VITALS: BP 149/93
[2022-07-16] MEDS: PANTOPRAZOLE 40 MG/VIAL IVP SCH (23:03)
[2022-07-17 00:54] VITALS: BP 151/67
[2022-07-17 04:52] LABS: BASOPHILS % (AUTO) 0.4 % (0.0-5.0); EOSINOPHILS % (AUTO) 0.2 % (0.0-8.0); HEMATOCRIT 43.9 % (36-48); LYMPHOCYTES % (AUTO) 19.1 % (21.0-51.0); MEAN CORPUSCULAR HEMOGLOBIN 29.4 pg (27.0-33.0); MEAN CORPUSCULAR HGB CONC 33.7 g/dL (32.0-36.0); MEAN CORPUSCULAR VOLUME 87.1 fL (79-99); MONOCYTES % (AUTO) 7.9 % (3.0-13.0); NEUTROPHILS % (AUTO) 71.9 % (40.0-77.0); PLATELET COUNT (AUTO) 239 K/uL (130-400); RED BLOOD CELL COUNT(AUTO) 5.04 MIL/uL (4.00-5.50); RED CELL DISTRIBUTION WIDTH 16.8 % (11.0-15.5); WHITE BLOOD COUNT (AUTO) 12.4 K/uL (4.8-10.8)
[2022-07-17 04:53] VITALS: BP 143/103
[2022-07-17 05:07] LABS: ALBUMIN 3.8 g/dL (3.5-5.0); POTASSIUM 4.2 mmol/L (3.5-5.1); TOTAL PROTEIN, SERUM 9.1 g/dL (6.0-8.3)
[2022-07-17 08:00] VITALS: BP 146/89
[2022-07-17] MEDS: BENZTROPINE 0.5MG TAB PO SCH ×2 (09:00→22:45)
[2022-07-17] MEDS: BALSAM PERU/CASTOR OIL 60 GM TUBE TP SCH ×2 (09:00→22:45)
[2022-07-17] MEDS: FAT EMULSIONS 20% 250ML 250 ML IV SCH (10:00)
[2022-07-17] MEDS: FONDAPARINUX SODIUM 7.5 MG/0.6 ML SQ SCH (10:31)
[2022-07-17 11:50] VITALS: BP 128/74
[2022-07-17] MEDS: DEXTROSE 5 %-0.45 % NACL 1,000 ML IV SCH (11:51)
[2022-07-17] MEDS: PANTOPRAZOLE 40 MG/VIAL IVP SCH ×2 (13:07→22:45)
[2022-07-17 16:00] VITALS: BP 150/81
[2022-07-17 20:04] VITALS: BP 144/67
[2022-07-17] MEDS ORDERED: MVI IV SCH (21:00)
[2022-07-17] MEDS ORDERED: [UNRECOGNIZED DRUG - OTHER] IV SCH (21:00)
[2022-07-17] MEDS ORDERED: MULTITRACE IV SCH (21:00)
[2022-07-17] MEDS: DONEPEZIL HCL 5 MG TAB PO SCH (22:45)
[2022-07-18] VITALS (7 sets, daily range): BP systolic 114–136; BP diastolic 60–85
[2022-07-18] MEDS: FONDAPARINUX SODIUM 7.5 MG/0.6 ML SQ SCH (11:18)
[2022-07-18] MEDS: PANTOPRAZOLE 40 MG/VIAL IVP SCH ×2 (11:18→22:04)
[2022-07-18] MEDS ORDERED: BALSAM PERU/CASTOR OIL 60 GM TUBE TP PRN (12:00)
[2022-07-18] MEDS: BENZTROPINE 0.5MG TAB PO SCH ×2 (16:38→22:04)
[2022-07-18] MEDS ORDERED: MULTITRACE IV ONE (22:00)
[2022-07-18] MEDS ORDERED: [UNRECOGNIZED DRUG - OTHER] IV ONE (22:00)
[2022-07-18] MEDS ORDERED: MVI IV ONE (22:00)
[2022-07-18] MEDS: DONEPEZIL HCL 5 MG TAB PO SCH (22:04)
[2022-07-19 03:41] VITALS: BP 123/63
[2022-07-19 07:30] VITALS: BP 117/59
[2022-07-19] MEDS: PANTOPRAZOLE 40 MG/VIAL IVP SCH ×2 (08:48→20:41)
[2022-07-19] MEDS: BENZTROPINE 0.5MG TAB PO SCH ×2 (08:48→20:41)
[2022-07-19] MEDS: FONDAPARINUX SODIUM 7.5 MG/0.6 ML SQ SCH (08:49)
[2022-07-19] MEDS: FAT EMULSIONS 20% 250ML 250 ML IV SCH (11:08)
[2022-07-19 11:28] VITALS: BP 155/72
[2022-07-19 15:30] VITALS: BP_SYST 125; BP_DIAS 64; BP_DIAS 65
[2022-07-19 19:52] VITALS: BP 129/70
[2022-07-19] MEDS ORDERED: MVI IV ONE (20:00)
[2022-07-19] MEDS ORDERED: [UNRECOGNIZED DRUG - OTHER] IV ONE (20:00)
[2022-07-19] MEDS ORDERED: MULTITRACE IV ONE (20:00)
[2022-07-19] MEDS: DONEPEZIL HCL 5 MG TAB PO SCH (20:41)
[2022-07-19 23:44] VITALS: BP 126/62
[2022-07-20 04:00] VITALS: BP 130/55
[2022-07-20 06:41] LABS: BASOPHILS % (AUTO) 0.7 % (0.0-5.0); EOSINOPHILS % (AUTO) 3.3 % (0.0-8.0); HEMATOCRIT 33.4 % (36-48); LYMPHOCYTES % (AUTO) 51.4 % (21.0-51.0); MEAN CORPUSCULAR HEMOGLOBIN 29.3 pg (27.0-33.0); MEAN CORPUSCULAR HGB CONC 32.9 g/dL (32.0-36.0); MEAN CORPUSCULAR VOLUME 88.8 fL (79-99); MONOCYTES % (AUTO) 8.6 % (3.0-13.0); NEUTROPHILS % (AUTO) 35.6 % (40.0-77.0); PLATELET COUNT (AUTO) 174 K/uL (130-400); RED BLOOD CELL COUNT(AUTO) 3.76 MIL/uL (4.00-5.50); RED CELL DISTRIBUTION WIDTH 15.9 % (11.0-15.5); WHITE BLOOD COUNT (AUTO) 7.3 K/uL (4.8-10.8)
[2022-07-20 07:15] LABS: ALBUMIN 2.8 g/dL (3.5-5.0); CREATININE 0.7 mg/dL (0.5-1.5); CRP QUANTITATIVE 2.6 mg/L (0.00-9.0); POTASSIUM 4.1 mmol/L (3.5-5.1); TOTAL PROTEIN, SERUM 6.9 g/dL (6.0-8.3)
[2022-07-20 07:30] VITALS: BP 113/57
[2022-07-20] MEDS: FONDAPARINUX SODIUM 7.5 MG/0.6 ML SQ SCH (09:05)
[2022-07-20] MEDS: PANTOPRAZOLE 40 MG/VIAL IVP SCH ×2 (09:05→21:24)
[2022-07-20] MEDS: BENZTROPINE 0.5MG TAB PO SCH ×2 (09:05→21:24)
[2022-07-20 11:25] VITALS: BP 119/55
[2022-07-20 15:30] VITALS: BP 114/46
[2022-07-20 20:00] VITALS: BP 130/54
[2022-07-20] MEDS ORDERED: MULTITRACE IV ONE (21:00)
[2022-07-20] MEDS ORDERED: MVI IV ONE (21:00)
[2022-07-20] MEDS ORDERED: [UNRECOGNIZED DRUG - OTHER] IV ONE (21:00)
[2022-07-20] MEDS: DONEPEZIL HCL 5 MG TAB PO SCH (21:24)
[2022-07-20 23:33] VITALS: BP 113/60
[2022-07-21 04:00] VITALS: BP 120/55
[2022-07-21 07:30] VITALS: BP 127/59
[2022-07-21] MEDS: BENZTROPINE 0.5MG TAB PO SCH ×2 (08:36→20:19)
[2022-07-21] MEDS: PANTOPRAZOLE 40 MG/VIAL IVP SCH ×2 (08:36→20:19)
[2022-07-21] MEDS: FONDAPARINUX SODIUM 7.5 MG/0.6 ML SQ SCH (08:36)
[2022-07-21 11:30] VITALS: BP 104/51
[2022-07-21 15:30] VITALS: BP 145/71
[2022-07-21 20:00] VITALS: BP 113/49
[2022-07-21] MEDS: DONEPEZIL HCL 5 MG TAB PO SCH (20:19)
[2022-07-21] MEDS ORDERED: [UNRECOGNIZED DRUG - OTHER] IV ONE (21:00)
[2022-07-21] MEDS ORDERED: MVI IV ONE (21:00)
[2022-07-21] MEDS ORDERED: MULTITRACE IV ONE (21:00)
[2022-07-21] MEDS: ACETAMINOPHEN 325 MG TAB PO PRN (23:11)
[2022-07-21 23:30] VITALS: BP 150/49
[2022-07-22 04:00] VITALS: BP 123/57
[2022-07-22 08:00] VITALS: BP 147/74
[2022-07-22] MEDS ORDERED: PHARMACY COMMUNICATION MISC SCH (09:30)
[2022-07-22] MEDS: BENZTROPINE 0.5MG TAB PO SCH ×2 (10:38→21:06)
[2022-07-22] MEDS: PANTOPRAZOLE 40 MG/VIAL IVP SCH ×2 (10:38→21:07)
[2022-07-22] MEDS: FAT EMULSIONS 20% 250ML 250 ML IV SCH (10:39)
[2022-07-22] MEDS: FONDAPARINUX SODIUM 7.5 MG/0.6 ML SQ SCH (10:39)
[2022-07-22 12:00] VITALS: BP 121/56
[2022-07-22 16:00] VITALS: BP 153/79
[2022-07-22 20:43] VITALS: BP 113/58
[2022-07-22] MEDS: DONEPEZIL HCL 5 MG TAB PO SCH (21:06)
[2022-07-22 23:22] VITALS: BP 105/52
[2022-07-23 03:58] VITALS: BP 102/51
[2022-07-23 08:00] VITALS: BP 129/73
[2022-07-23] MEDS ORDERED: [UNRECOGNIZED DRUG - OTHER] IV ONE (08:00)
[2022-07-23] MEDS ORDERED: MULTITRACE IV ONE (08:00)
[2022-07-23] MEDS ORDERED: MVI IV ONE (08:00)
[2022-07-23] MEDS: BENZTROPINE 0.5MG TAB PO SCH ×2 (11:43→20:25)
[2022-07-23] MEDS: PANTOPRAZOLE 40 MG/VIAL IVP SCH ×2 (11:45→20:25)
[2022-07-23] MEDS: FONDAPARINUX SODIUM 7.5 MG/0.6 ML SQ SCH (11:46)
[2022-07-23 12:00] VITALS: BP 131/57
[2022-07-23 16:00] VITALS: BP 127/59
[2022-07-23 19:00] VITALS: BP 139/60
[2022-07-23] MEDS: DONEPEZIL HCL 5 MG TAB PO SCH (20:25)
[2022-07-24] VITALS (7 sets, daily range): BP systolic 118–135; BP diastolic 56–66
[2022-07-24] MEDS: PANTOPRAZOLE 40 MG/VIAL IVP SCH ×2 (08:49→20:49)
[2022-07-24] MEDS: BENZTROPINE 0.5MG TAB PO SCH ×2 (08:50→20:50)
[2022-07-24] MEDS: FONDAPARINUX SODIUM 7.5 MG/0.6 ML SQ SCH (08:54)
[2022-07-24] MEDS: DONEPEZIL HCL 5 MG TAB PO SCH (20:50)
[2022-07-24] MEDS ORDERED: DRONABINOL 2.5 MG CAP PO ONE (21:00)
[2022-07-25 04:00] VITALS: BP 139/55
[2022-07-25 05:32] LABS: BASOPHILS % (AUTO) 0.7 % (0.0-5.0); EOSINOPHILS % (AUTO) 2.9 % (0.0-8.0); HEMATOCRIT 32.8 % (36-48); LYMPHOCYTES % (AUTO) 57.5 % (21.0-51.0); MEAN CORPUSCULAR HEMOGLOBIN 29.6 pg (27.0-33.0); MEAN CORPUSCULAR HGB CONC 33.5 g/dL (32.0-36.0); MEAN CORPUSCULAR VOLUME 88.4 fL (79-99); NEUTROPHILS % (AUTO) 30.6 % (40.0-77.0); PLATELET COUNT (AUTO) 196 K/uL (130-400); RED BLOOD CELL COUNT(AUTO) 3.71 MIL/uL (4.00-5.50); RED CELL DISTRIBUTION WIDTH 15.7 % (11.0-15.5); WHITE BLOOD COUNT (AUTO) 5.8 K/uL (4.8-10.8)
[2022-07-25 05:49] LABS: ALBUMIN 2.8 g/dL (3.5-5.0); CREATININE 0.7 mg/dL (0.5-1.5); MAGNESIUM 1.7 mg/dL (1.80-2.40); POTASSIUM 3.7 mmol/L (3.5-5.1); TOTAL PROTEIN, SERUM 6.7 g/dL (6.0-8.3)
[2022-07-25] MEDS: MAGNESIUM 2GM PREMIX 50ML 50 ML IV PRN (06:08)
[2022-07-25 08:00] VITALS: BP 126/52
[2022-07-25] MEDS ORDERED: MVI IV SCH (09:30)
[2022-07-25] MEDS ORDERED: MULTITRACE IV SCH (09:30)
[2022-07-25] MEDS ORDERED: [UNRECOGNIZED DRUG - OTHER] IV SCH (09:30)
[2022-07-25] MEDS: BENZTROPINE 0.5MG TAB PO SCH (09:37)
[2022-07-25] MEDS: PANTOPRAZOLE 40 MG/VIAL IVP SCH (09:37)
[2022-07-25] MEDS: FONDAPARINUX SODIUM 7.5 MG/0.6 ML SQ SCH (09:38)
[2022-07-25 12:00] VITALS: BP 126/51
== END 2022-07-25 15:03 | DRG 885 ==
LOC: EDH 13:09 → EDHIP 18:21 → 3BH 06-06 01:00
PROVIDERS: ADMIT Hospitalist; ATTEND Hospitalist
DX: F20.1 Disorganized schizophrenia (principal); E43 Unspecified severe protein-calorie malnutrition; S73.005A Unspecified dislocation of left hip, initial encounter; I82.412 Acute embolism and thrombosis of left femoral vein; Z20.822 Contact with and (suspected) exposure to COVID-19; D50.9 Iron deficiency anemia, unspecified; F31.9 Bipolar disorder, unspecified; E11.9 Type 2 diabetes mellitus without complications; I10 Essential (primary) hypertension; L30.4 Erythema intertrigo; B35.6 Tinea cruris; R32 Unspecified urinary incontinence; F91.8 Other conduct disorders; E03.9 Hypothyroidism, unspecified; F41.1 Generalized anxiety disorder; D69.6 Thrombocytopenia, unspecified; W18.39XA Other fall on same level, initial encounter; R62.7 Adult failure to thrive; Z74.01 Bed confinement status; Z79.01 Long term (current) use of anticoagulants; Z99.3 Dependence on wheelchair; Z86.718 Personal history of other venous thrombosis and embolism; Z79.899 Other long term (current) drug therapy; Y93.89 Activity, other specified; Y92.89 Other specified places as the place of occurrence of the external cause; Y99.8 Other external cause status; Z68.27 Body mass index [BMI] 27.0-27.9, adult
CPT/HCPCS: 36415; 70450; 70551; 71045; 73522; 74018; 80048; 80053; 80164; 80305; 81001; 82140; 82306; 82550; 82607; 82728; 82746; 82948; 83036; 83540; 83550; 83615; 83735; 83880; 84100; 84132; 84145; 84439; 84443; 84481; 85025; 85027; 85045; 85520; 85610; 85651; 85730; 86038; 86140; 86160; 86215; 86235; 86592; 86701; 87390; 87635; 92610; 93005; 93970; 97039; C1894; C9113; C9803; G0378; G0481; J1650; J1652; J1756; J1815; J2060; J2270; J2550; J3420; J3475; J3480; J3490; J7042; J7050; J7070; Q0167